=== PATIENT | female | born 1945 | race Caucasian/White ===

== ENCOUNTER 2016-12-25 09:09 | Emergency (ER) | payer MEDICARE ==
[2016-12-25 09:15] VITALS: RESP 18; TEMP 98.1
[2016-12-25 09:23] LABS: Glucose,Whole Blood 102 mg/dL (75-99)
--- NOTE | 2016-12-25 09:35 | ED ---
Altered Mental Status HPI - General Chief Complaint: Altered Mental Status Stated Complaint: confusion Time Seen by Provider: 12/25/16 09:20 Source: patient, RN notes reviewed Mode of arrival: ambulatory Limitations: no limitations - History of Present Illness Initial Comments: This is a 71-year-old female with a benign past history of an appendectomy and tonsillectomy who is here for evaluation for some confusion and memory loss. She states she came. CAT scan november brain was R-rated. She did perk in a doctor's parking lot and the west side of the hospital this morning and then said out in the waiting room for an hour and a half before seeking help finding her car. She does admit that she's been having issues with memory lately she is distressed because her daughter has follow-up petition become her guardian. Patient denies any medical problems no hurt wall including liver disease no hypertension. No thyroid problems no fevers chills sweats nausea vomiting no head injuries. No focal weakness. She does relate that her mother at the age of 93 and did have Alzheimer's disease and she is afraid she may be going on the same path. MD Complaint: confusion - Related Data Home Medications Medication Instructions Recorded Confirmed Cetirizine HCl [Zyrtec] 10 mg PO DAILY PRN 12/25/16 12/25/16 diphenhydrAMINE [Benadryl] 25 mg PO QID PRN 12/25/16 12/25/16 Allergies Allergy/AdvReac Type Severity Reaction Status Date / Time peanut [Peanut Butter] Allergy Rash/Hives Verified 12/25/16 10:39 peanut oil Allergy Rash/Hives Verified 12/25/16 10:39 Review of Systems ROS Statement: Those systems with pertinent positive or pertinent negative responses have been documented in the HPI. ROS Other: All systems not noted in ROS Statement are negative. Past Medical History Past Medical History: No Reported History History of Any Multi-Drug Resistant Organisms: None Reported Past Surgical History: Appendectomy, Cholecystectomy, Tonsillectomy Past Psychological History: No Psychological Hx Reported Smoking Status: Never smoker Past Alcohol Use History: None Reported Past Drug Use History: None Reported General Exam - General Exam Comments Initial Comments: This is a well-developed well-nourished awake alert oriented 3 female she was somewhat slow was responding to why she was here today. Limitations: no limitations General appearance: alert, in no apparent distress Head exam: Present: atraumatic, normocephalic, normal inspection Eye exam: Present: normal appearance, PERRL, EOMI. Absent: scleral icterus, conjunctival injection, periorbital swelling ENT exam: Present: normal exam, mucous membranes moist Neck exam: Present: normal inspection. Absent: tenderness, meningismus, lymphadenopathy Respiratory exam: Present: normal lung sounds bilaterally. Absent: respiratory distress, wheezes, rales, rhonchi, stridor Cardiovascular Exam: Present: regular rate, normal rhythm, normal heart sounds. Absent: systolic murmur, diastolic murmur, rubs, gallop, clicks GI/Abdominal exam: Present: soft, normal bowel sounds. Absent: distended, tenderness, guarding, rebound, rigid Extremities exam: Present: normal inspection, full ROM, normal capillary refill. Absent: tenderness, pedal edema, joint swelling, calf tenderness Back exam: Present: normal inspection Neurological exam: Present: alert, oriented X3, CN II-XII intact Psychiatric exam: Present: normal affect, anxious Skin exam: Present: warm, dry, intact, normal color. Absent: rash Course Vital Signs 12/25/16 09:10 Temperature 98.1 F Pulse Rate 95 Respiratory 18 Rate Blood Pressure 133/61 O2 Sat by Pulse 95 Oximetry Medical Decision Making - Medical Decision Making I did a long discussion with the patient and her daughter. 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 Cerebral atrophy noted on CAT scan left lower lobe atelectasis patient had no cough no fevers chills sweats or other symptoms. She is having episodes of forgetfulness. A component of dementia is considered. Patient will be discharged with her daughter I did caution her about driving in the public safety issues with this. - Lab Data Result diagrams: 12/25/16 09:52 12/25/16 09:52 Lab Results 12/25/16 12/25/16 12/25/16 Range/Units 09:20 09:52 09:52 WBC (3.8-10.6) k/uL RBC (3.80-5.40) m/uL Hgb (11.4-16.0) gm/dL Hct (34.0-46.0) % MCV (80.0-100.0) fL MCH (25.0-35.0) pg MCHC (31.0-37.0) g/dL RDW (11.5-15.5) % Plt Count (150-450) k/uL Neutrophils % % Lymphocytes % % Monocytes % % Eosinophils % % Basophils % % Neutrophils # (1.3-7.7) k/uL Lymphocytes # (1.0-4.8) k/uL Monocytes # (0-1.0) k/uL Eosinophils # (0-0.7) k/uL Basophils # (0-0.2) k/uL Sodium 142 (137-145) mmol/L Potassium 4.2 (3.5-5.1) mmol/L Chloride 108 H (98-107) mmol/L Carbon Dioxide 22 (22-30) mmol/L Anion Gap 12 mmol/L BUN 26 H (7-17) mg/dL Creatinine 0.99 (0.52-1.04) mg/dL Est GFR (MDRD) Af Amer >60 (>60 ml/min/1.73 sqM) Est GFR (MDRD) Non-Af 55 (>60 ml/min/1.73 sqM) Glucose 100 H (74-99) mg/dL POC Glucose (mg/dL) 102 H (75-99) mg/dL POC Glu Forensic Materials Engineer ID Gaby Espinal Calcium 9.9 (8.4-10.2) mg/dL Magnesium 2.2 (1.6-2.3) mg/dL Total Bilirubin 0.6 (0.2-1.3) mg/dL AST 36 (14-36) U/L ALT 38 (9-52) U/L Alkaline Phosphatase 102 (38-126) U/L Total Creatine Kinase 236 H (30-135) U/L CK-MB (CK-2) 2.8 H* (0.0-2.4) ng/mL CK-MB (CK-2) Rel Index 1.2 Troponin I <0.012 (0.000-0.034) ng/mL Total Protein 7.6 (6.3-8.2) g/dL Albumin 4.6 (3.5-5.0) g/dL TSH 1.860 (0.465-4.680) mIU/L 12/25/16 Range/Units 09:52 WBC 8.0 (3.8-10.6) k/uL RBC 4.48 (3.80-5.40) m/uL Hgb 14.2 (11.4-16.0) gm/dL Hct 42.6 (34.0-46.0) % MCV 95.1 (80.0-100.0) fL MCH 31.6 (25.0-35.0) pg MCHC 33.3 (31.0-37.0) g/dL RDW 13.5 (11.5-15.5) % Plt Count 250 (150-450) k/uL Neutrophils % 50 % Lymphocytes % 37 % Monocytes % 7 % Eosinophils % 4 % Basophils % 1 % Neutrophils # 4.0 (1.3-7.7) k/uL Lymphocytes # 2.9 (1.0-4.8) k/uL Monocytes # 0.5 (0-1.0) k/uL Eosinophils # 0.3 (0-0.7) k/uL Basophils # 0.1 (0-0.2) k/uL Sodium (137-145) mmol/L Potassium (3.5-5.1) mmol/L Chloride (98-107) mmol/L Carbon Dioxide (22-30) mmol/L Anion Gap mmol/L BUN (7-17) mg/dL Creatinine (0.52-1.04) mg/dL Est GFR (MDRD) Af Amer (>60 ml/min/1.73 sqM) Est GFR (MDRD) Non-Af (>60 ml/min/1.73 sqM) Glucose (74-99) mg/dL POC Glucose (mg/dL) (75-99) mg/dL POC Glu Forensic Materials Engineer ID Calcium (8.4-10.2) mg/dL Magnesium (1.6-2.3) mg/dL Total Bilirubin (0.2-1.3) mg/dL AST (14-36) U/L ALT (9-52) U/L Alkaline Phosphatase (38-126) U/L Total Creatine Kinase (30-135) U/L CK-MB (CK-2) (0.0-2.4) ng/mL CK-MB (CK-2) Rel Index Troponin I (0.000-0.034) ng/mL Total Protein (6.3-8.2) g/dL Albumin (3.5-5.0) g/dL TSH (0.465-4.680) mIU/L - Radiology Data Radiology results: report reviewed (Review the x-ray report showed no definite acute findings or is evidence of left lower lobe atelectasis.), image reviewed Disposition Clinical Impression: Confusion Disposition: HOME SELF-CARE Condition: Good Instructions: Dementia (ED) Referrals: Ousmane Martinez MD [Primary Care Provider] - 1-2 days
[2016-12-25 10:03] LABS: Basophils # (A) 0.1 k/uL (0-0.2); Basophils % (A) 1 %; CH 31.5; CHCM 33.3; Eosinophils # (A) 0.3 k/uL (0-0.7); Eosinophils % (A) 4 %; HCT 42.6 % (34.0-46.0); HDW 2.35; HGB 14.2 gm/dL (11.4-16.0); Luc % (Auto) 3; Lymphocytes # (A) 2.9 k/uL (1.0-4.8); Lymphocytes % (A) 37 %; MCH 31.6 pg (25.0-35.0); MCHC 33.3 g/dL (31.0-37.0); MCV 95.1 fL (80.0-100.0); Mean Platelet Volume 8.3; Monocytes # (A) 0.5 k/uL (0-1.0); Monocytes % (A) 7 %; Neutrophils % (A) 50 %; RBC 4.48 m/uL (3.80-5.40); RDW 13.5 % (11.5-15.5); WBC (Perox) 7.73
[2016-12-25 10:14] LABS: ALT 38 U/L (9-52); AST 36 U/L (14-36); Alkaline Phosphatase 102 U/L (38-126); Anion Gap 12 mmol/L; Blood Urea Nitrogen 26 mg/dL (7-17); Calcium 9.9 mg/dL (8.4-10.2); Carbon Dioxide 22 mmol/L (22-30); Chloride 108 mmol/L (98-107); Glucose 100 mg/dL (74-99); Magnesium 2.2 mg/dL (1.6-2.3); Non-African American GFR(MDRD) 55 (>60 ml/min/1.73 sqM); Potassium 4.2 mmol/L (3.5-5.1); Sodium 142 mmol/L (137-145); Total Bilirubin 0.6 mg/dL (0.2-1.3); Total Protein 7.6 g/dL (6.3-8.2)
[2016-12-25 10:29] LABS: Creatine Kinase 236 U/L (30-135)
--- NOTE | 2016-12-25 10:32 | XR ---
EXAMINATION TYPE: XR chest 2V DATE OF EXAM: 12/25/2016 COMPARISON: NONE TECHNIQUE: PA and lateral views submitted. HISTORY: Cough FINDINGS: The lungs are clear and there is no pneumothorax, pleural effusion, or focal pneumonia. Biapical pl eural thickening. Basilar atelectasis or early infiltrate. Chronic right rib deformities suggest remote trauma. Hypertrophic changes of the spine. Surgical clip s in the abdomen. IMPRESSION: 1. Left basilar atelectasis or infiltrate. 2. Correlate for COPD
--- NOTE | 2016-12-25 10:37 | CT ---
EXAMINATION TYPE: CT brain wo con DATE OF EXAM: 12/25/2016 HISTORY: Confusion CT DLP: 1017.9 mGycm. Automated Exposure Control for Dose Reduction was Utilized. TECHNIQUE: CT scan of the head is performed without contrast. COMPARISON: None. FINDINGS: There is no acute intracranial hemorrhage or midline shift identified. There is diffuse v entricular and sulcal prominence consistent with diffuse age-related cerebral atrophy. There is low- attenuation in the periventricular white matter consistent with chronic small vessel ischemic change. The globes are intact and the visualized sinuses are clear. IMPRESSION: No acute intracranial hemorrhage or midline shift. There is mild to moderate diffuse ag e-related cerebral atrophy and chronic small vessel ischemic change noted.
[2016-12-25 10:42] LABS: Troponin I <0.012 ng/mL (0.000-0.034)
[2016-12-25 10:51] LABS: Creatine Kinase MB 2.8 ng/mL (0.0-2.4)
[2016-12-25 12:20] VITALS: BP 144/78; PULSE 88
== END 2016-12-25 12:39 | disposition home or self-care (01) ==
LOC: EC 09:09
DX: R41.0 Disorientation, unspecified (principal); R41.3 Other amnesia; G31.9 Degenerative disease of nervous system, unspecified; J98.11 Atelectasis; Z91.010 Allergy to peanuts; Z81.8 Family history of other mental and behavioral disorders
CPT/HCPCS: 36415; 70450; 71020; 80053; 82550; 82553; 83735; 84443; 84484; 85025; 93005; 99285

== ENCOUNTER → 2017-09-11 | Outpatient (CLI) | payer MEDICARE ==
--- NOTE | 2017-09-14 10:47 | MM ---
Reason for exam: screening (asymptomatic). History: Patient is postmenopausal. Physical Findings: A clinical breast exam by your physician is recommended on an annual basis and results should be correlated with mammographic findings. MG 3D Screening Mammo W/Cad Bilateral CC and MLO view(s) were taken. No prior studies available for comparison. There is no discrete abnormality. ASSESSMENT: Negative, BI-RAD 1 RECOMMENDATION: Routine screening mammogram of both breasts in 1 year.
== END | disposition home or self-care (01) ==
LOC: RADMAMWWP 06:58
PROVIDERS: ATTEND Internal Medicine
DX: Z12.31 Encounter for screening mammogram for malignant neoplasm of breast (principal)
CPT/HCPCS: 77063; 77067

== ENCOUNTER → 2018-11-17 | Outpatient (CLI) | payer MEDICARE ==
--- NOTE | 2018-11-17 22:28 | MR ---
EXAMINATION TYPE: MR brain wo con DATE OF EXAM: 11/17/2018 COMPARISON: CT brain December 25, 2016. HISTORY: Mild cognitive impairment. TECHNIQUE: Multiplanar, multisequence imaging of the brain and brainstem is performed without IV cont rast. FINDINGS: Diffusion weighted images demonstrate no evidence of a recent infarct or other diffusion abnormality. There is no worrisome extra-axial fluid collection. There is diffuse ventricular and sulcal prominenc e redemonstrated. There are some scattered foci of T2 hyperintensity throughout the white matter bila terally. Lesions are nonspecific in appearance and distribution. Midline structures demonstrate normal morphology. The craniocervical junction appears within normal limits. Normal vascular flow voids are present. The visualized sinuses are clear and the globes are i ntact. Some patchy increased fluid signal bilateral mastoid air cells, left greater than right is red emonstrated. IMPRESSION: Moderate to borderline advanced diffuse cerebral atrophy with mild chronic small vessel i schemic change identified. Possible mild left greater than right mastoiditis, correlate clinically.
== END ==
LOC: RADMRIMAIN 18:32
PROVIDERS: ATTEND Psychiatry & Neurology Neurology
DX: G31.84 Mild cognitive impairment of uncertain or unknown etiology (principal)
CPT/HCPCS: 70551

== ENCOUNTER 2019-06-02 17:02 | Emergency (ER) | payer MEDICARE ==
[2019-06-02] MEDS ORDERED: methylPREDNISolone SOD SUCCI 125 MG/2 ML VIAL IV STA (17:10)
[2019-06-02] MEDS ORDERED: FAMOTIDINE 20 MG/2 ML VIAL IV STA (17:10)
--- NOTE | 2019-06-02 18:12 | ED ---
Allergic Reaction HPI - General Chief complaint: Allergic Reaction Stated complaint: allergic reaction Time Seen by Provider: 06/02/19 17:02 Source: patient, EMS, RN notes reviewed Mode of arrival: EMS Limitations: no limitations - History of Present Illness Initial Comments: This is a 74-year-old female with a history of peanut ALLERGY was exposed to p andrea when she some brownies that were exposed to peanut matter. He started developing a rash was itchy some slight throat discomfort no difficulty breathing otherwise. She is brought in by EMS. She did take for Benadryl prior to transport. She is started feel somewhat better already. MD Complaint: allergic reaction - Related Data Home Medications Medication Instructions Recorded Confirmed Cetirizine HCl [Zyrtec] 10 mg PO DAILY PRN 12/25/16 12/25/16 diphenhydrAMINE [Benadryl] 25 mg PO QID PRN 12/25/16 12/25/16 Previous Rx's Medication Instructions Recorded EPINEPHrine (Auto Inject) [Epipen] 0.3 mg IM ONCE PRN #2 pen 06/02/19 Famotidine [Pepcid] 20 mg PO BID #10 tablet 06/02/19 methylPREDNISolone Dose Pack 4 mg PO DIRECTED #21 package 06/02/19 [Medrol Dose Pack] Allergies Allergy/AdvReac Type Severity Reaction Status Date / Time peanut [Peanut Butter] Allergy Rash/Hives Verified 06/02/19 17:08 peanut oil Allergy Rash/Hives Verified 06/02/19 17:08 Review of Systems ROS Statement: Those systems with pertinent positive or pertinent negative responses have been documented in the HPI. ROS Other: All systems not noted in ROS Statement are negative. Past Medical History Past Medical History: No Reported History History of Any Multi-Drug Resistant Organisms: None Reported Past Surgical History: Appendectomy, Cholecystectomy, Tonsillectomy Past Psychological History: No Psychological Hx Reported Smoking Status: Never smoker Past Alcohol Use History: None Reported Past Drug Use History: None Reported General Exam - General Exam Comments Initial Comments: This is a well-developed well-nourished awake alert oriented 3 female Limitations: no limitations General appearance: alert, anxious Head exam: Present: atraumatic, normocephalic, normal inspection Eye exam: Present: normal appearance, PERRL, EOMI. Absent: scleral icterus, conjunctival injection, periorbital swelling ENT exam: Present: normal exam, mucous membranes moist Neck exam: Present: normal inspection, full ROM, other (No stridor JVD or bruits). Absent: tenderness, meningismus, lymphadenopathy Respiratory exam: Present: normal lung sounds bilaterally. Absent: respiratory distress, wheezes, rales, rhonchi, stridor Cardiovascular Exam: Present: regular rate, normal rhythm, normal heart sounds. Absent: systolic murmur, diastolic murmur, rubs, gallop, clicks GI/Abdominal exam: Present: soft, normal bowel sounds. Absent: distended, tenderness, guarding, rebound, rigid Extremities exam: Present: normal inspection, full ROM, normal capillary refill. Absent: tenderness, pedal edema, joint swelling, calf tenderness Back exam: Present: normal inspection Neurological exam: Present: alert, oriented X3, CN II-XII intact Psychiatric exam: Present: normal affect, normal mood Skin exam: Present: warm, dry, intact, erythema, other (MCV of the face and extremities.). Absent: rash Course Vital Signs 06/02/19 17:03 Temperature 97.9 F Pulse Rate 84 Respiratory 16 Rate Blood Pressure 187/87 O2 Sat by Pulse 96 Oximetry Medical Decision Making - Medical Decision Making Reevaluation patient reveals she still improves her coloration has improved. No further symptoms at this time she'll be discharged on appropriate medication. She's not sure exactly where her EpiPen is at home she'll be given a new prescription Disposition Clinical Impression: Peanut allergy, Allergic reaction Disposition: HOME SELF-CARE Condition: Good Instructions (If sedation given, give patient instructions): Peanut Allergy (ED) Additional Instructions: Prescription sent to your preferred pharmacy Prescriptions: EPINEPHrine (Auto Inject) [Epipen] 0.3 mg IM ONCE PRN #2 pen PRN Reason: Anaphylaxis methylPREDNISolone Dose Pack [Medrol Dose Pack] 4 mg PO DIRECTED #21 package Famotidine [Pepcid] 20 mg PO BID #10 tablet Is patient prescribed a controlled substance at d/c from ED?: No Referrals: Ousmane Martinez MD [Primary Care Provider] - 1-2 days
[2019-06-02 18:22] VITALS: BP 158/71; PULSE 79; RESP 17; TEMP 98
== END 2019-06-02 18:21 | disposition home or self-care (01) ==
LOC: EC 17:02
DX: T78.1XXA Other adverse food reactions, not elsewhere classified, initial encounter (principal); Z91.010 Allergy to peanuts
CPT/HCPCS: 99283; 96374; 96375; J2930

== ENCOUNTER 2019-10-24 14:14 | Emergency (ER) | payer MEDICARE ==
[2019-10-24 14:20] VITALS: RESP 18; TEMP 98
[2019-10-24] MEDS ORDERED: FAMOTIDINE 20 MG/2 ML VIAL IV STA (14:23)
--- NOTE | 2019-10-24 14:25 | ED ---
General Adult HPI - General Chief complaint: Allergic Reaction Stated complaint: Allergic Reaction Time Seen by Provider: 10/24/19 14:19 Source: patient, EMS Mode of arrival: EMS Limitations: no limitations - History of Present Illness Initial comments: Dictation was produced using [employer] dictation software. please excuse any grammatical, word or spelling errors. This patient was cared for during a federal and state declared state of emergency secondary to Covid 19 Chief Complaint: 74-year-old female presents with possible ALLERGIC reaction to chocolate or peanut butter History of Present Illness: 74-year-old female she has no known comorbidities. She was brought in by EMS for reaction to chocolate or peanut butter. Current EMS she was brought here today because she was having a reaction to chocolate and or peanut butter. EMS was called for possible reaction. Patient has an ALLERGY to chocolate and peanut butter. She states she consumed these items because she forgot and wasn't thinking. EMS reports that patient appeared to be red in the face. She was given epinephrine and Benadryl. Yes reports that her symptoms improved. Patient states that she feels okay at this time. She denies any shortness of breath or abdominal pain. Patient also denies any rash. The ROS documented in this emergency department record has been reviewed and confirmed by me. Those systems with pertinent positive or negative responses have been documented in the HPI. All other systems are other negative and/or noncontributory. PHYSICAL EXAM: General Impression: Alert and oriented x2/4, not in acute distress HEENT: Normocephalic atraumatic, extra-ocular movements intact, pupils equal and reactive to light bilaterally, mucous membranes moist. Cardiovascular: Heart regular rate and rhythm Chest: Able to complete full sentences, no retractions, no tachypnea, no wheezing with auscultation of the lungs Abdomen: Bowel sounds present, abdomen soft, non-tender, non-distended, no organomegaly Musculoskeletal: Pulses present and equal in all extremities, no peripheral edema Motor: no focal deficits noted Neurological: CN II-XII grossly intact, no focal motor or sensory deficits noted Skin: Intact with no visualized rashes ED course: 74-year-old female presents today with possible ALLERGIC exposure to chocolate and/or peanut butter. Patient is a poor historian. She does appear confused. Simply with patient's normal baseline mentation is. She currently lives at assisted living facility. Patient appears to be confused. She is not able to tell me what month or year it is accurately. She does however identify the current president and the most recent holiday. Daughter at bedside reports that patient has history of Alzheimer's and that she is at her baseline. Altered mental status workup was not pursued considering that daughter reports the patient is at baseline. Labs are grossly unremarkable. She does have a mild lactic acidosis 2.5. likely secondary to mild starvation ketoacidosis and dehydration. Patient is well-appearing at bedside. Daughter requested that patient be discharged considering that there is a current pandemic at the moment. Urinalysis shows 4+ glucose. Serum alcohol is negative. Chest x-ray is nonacute. Patient is well-appearing at bedside. She is given Decadron and Pepcid. Patient given prescription for EpiPen. Return parameters discussed with daughter. Patient will be discharged. EKG interpretation: Ventricular rate 80, normal sinus rhythm,. 126, QRS 82, QTc 440. No NC prolongation, no QTC prolongation, no ST or T-wave changes noted. . Overall, this EKG is unremarkable - Related Data Home Medications Medication Instructions Recorded Confirmed Cetirizine HCl [Zyrtec] 10 mg PO DAILY PRN 12/25/16 12/25/16 diphenhydrAMINE [Benadryl] 25 mg PO QID PRN 12/25/16 12/25/16 Previous Rx's Medication Instructions Recorded EPINEPHrine (Auto Inject) [Epipen] 0.3 mg IM ONCE PRN #2 pen 06/02/19 Famotidine [Pepcid] 20 mg PO BID #10 tablet 06/02/19 methylPREDNISolone Dose Pack 4 mg PO DIRECTED #21 package 06/02/19 [Medrol Dose Pack] EPINEPHrine (Auto Inject) [Epipen] 0.3 mg IM ONCE PRN #2 pen 10/24/19 Allergies Allergy/AdvReac Type Severity Reaction Status Date / Time peanut [Peanut Butter] Allergy Rash/Hives Verified 06/02/19 17:08 peanut oil Allergy Rash/Hives Verified 06/02/19 17:08 Review of Systems ROS Statement: Those systems with pertinent positive or pertinent negative responses have been documented in the HPI. ROS Other: All systems not noted in ROS Statement are negative. Past Medical History Past Medical History: No Reported History History of Any Multi-Drug Resistant Organisms: None Reported Past Surgical History: Appendectomy, Cholecystectomy, Tonsillectomy Past Psychological History: No Psychological Hx Reported Smoking Status: Never smoker Past Alcohol Use History: None Reported Past Drug Use History: None Reported General Exam Limitations: no limitations Course Vital Signs 10/24/19 14:15 Temperature 98 F Pulse Rate 98 Respiratory 18 Rate Blood Pressure 165/95 O2 Sat by Pulse 98 Oximetry Medical Decision Making - Lab Data Result diagrams: 10/24/19 14:28 10/24/19 14:28 Lab Results 10/24/19 10/24/19 10/24/19 Range/Units 14:28 14:28 14:28 WBC 13.2 H (3.8-10.6) k/uL RBC 5.00 (3.80-5.40) m/uL Hgb 15.3 (11.4-16.0) gm/dL Hct 46.5 H (34.0-46.0) % MCV 93.1 (80.0-100.0) fL MCH 30.5 (25.0-35.0) pg MCHC 32.8 (31.0-37.0) g/dL RDW 12.9 (11.5-15.5) % Plt Count 273 (150-450) k/uL PT 9.8 (9.0-12.0) sec INR 0.9 (<1.2) APTT 22.3 (22.0-30.0) sec Sodium 136 L (137-145) mmol/L Potassium 4.5 (3.5-5.1) mmol/L Chloride 102 (98-107) mmol/L Carbon Dioxide 24 (22-30) mmol/L Anion Gap 10 mmol/L BUN 19 H (7-17) mg/dL Creatinine 1.03 (0.52-1.04) mg/dL Est GFR (CKD-EPI)AfAm 62 (>60 ml/min/1.73 sqM) Est GFR (CKD-EPI)NonAf 54 (>60 ml/min/1.73 sqM) Glucose 317 H (74-99) mg/dL Plasma Lactic Acid Missael (0.7-2.0) mmol/L Calcium 9.8 (8.4-10.2) mg/dL Magnesium 2.0 (1.6-2.3) mg/dL Total Bilirubin 0.3 (0.2-1.3) mg/dL AST 69 H (14-36) U/L ALT 70 H (4-34) U/L Alkaline Phosphatase 129 H (38-126) U/L Total Protein 7.0 (6.3-8.2) g/dL Albumin 4.2 (3.5-5.0) g/dL Urine Color Urine Appearance (Clear) Urine pH (5.0-8.0) Ur Specific Beecher (1.001-1.035) Urine Protein (Negative) Urine Glucose (UA) (Negative) Urine Ketones (Negative) Urine Blood (Negative) Urine Nitrite (Negative) Urine Bilirubin (Negative) Urine Urobilinogen (<2.0) mg/dL Ur Leukocyte Esterase (Negative) Serum Alcohol <10 mg/dL 10/24/19 10/24/19 Range/Units 14:28 14:50 WBC (3.8-10.6) k/uL RBC (3.80-5.40) m/uL Hgb (11.4-16.0) gm/dL Hct (34.0-46.0) % MCV (80.0-100.0) fL MCH (25.0-35.0) pg MCHC (31.0-37.0) g/dL RDW (11.5-15.5) % Plt Count (150-450) k/uL PT (9.0-12.0) sec INR (<1.2) APTT (22.0-30.0) sec Sodium (137-145) mmol/L Potassium (3.5-5.1) mmol/L Chloride (98-107) mmol/L Carbon Dioxide (22-30) mmol/L Anion Gap mmol/L BUN (7-17) mg/dL Creatinine (0.52-1.04) mg/dL Est GFR (CKD-EPI)AfAm (>60 ml/min/1.73 sqM) Est GFR (CKD-EPI)NonAf (>60 ml/min/1.73 sqM) Glucose (74-99) mg/dL Plasma Lactic Acid Missael 2.5 H* (0.7-2.0) mmol/L Calcium (8.4-10.2) mg/dL Magnesium (1.6-2.3) mg/dL Total Bilirubin (0.2-1.3) mg/dL AST (14-36) U/L ALT (4-34) U/L Alkaline Phosphatase (38-126) U/L Total Protein (6.3-8.2) g/dL Albumin (3.5-5.0) g/dL Urine Color Light Yellow Urine Appearance Clear (Clear) Urine pH 5.5 (5.0-8.0) Ur Specific Beecher 1.018 (1.001-1.035) Urine Protein Negative (Negative) Urine Glucose (UA) 4+ H (Negative) Urine Ketones Negative (Negative) Urine Blood Negative (Negative) Urine Nitrite Negative (Negative) Urine Bilirubin Negative (Negative) Urine Urobilinogen <2.0 (<2.0) mg/dL Ur Leukocyte Esterase Negative (Negative) Serum Alcohol mg/dL Disposition Clinical Impression: Allergic reaction Disposition: HOME SELF-CARE Condition: Fair Instructions (If sedation given, give patient instructions): Anaphylaxis (ED) Additional Instructions: Please follow with primary care physician upon discharge. Given prescriptions for EpiPen autoinjector's. He is administered this to patient if you have another ALLERGIC Prescriptions: EPINEPHrine (Auto Inject) [Epipen] 0.3 mg IM ONCE PRN #2 pen PRN Reason: Anaphylaxis Is patient prescribed a controlled substance at d/c from ED?: No Referrals: Ousmane Martinez MD [STAFF PHYSICIAN] - 1-2 days Time of Disposition: 15:02
[2019-10-24 14:39] LABS: Basophils # (A) 0.1 k/uL (0-0.2); Basophils % (A) 1 %; Eosinophils # (A) 0.6 k/uL (0-0.7); Eosinophils % (A) 5 %; HCT 46.5 % (34.0-46.0); HGB 15.3 gm/dL (11.4-16.0); Lymphocytes # (A) 8.5 k/uL (1.0-4.8); Lymphocytes % (A) 65 %; MCH 30.5 pg (25.0-35.0); MCHC 32.8 g/dL (31.0-37.0); MCV 93.1 fL (80.0-100.0); Mean Platelet Volume 10.4; Monocytes # (A) 0.6 k/uL (0-1.0); Monocytes % (A) 5 %; Neutrophils % (A) 23 %; Platelet Count 273 k/uL (150-450); RDW 12.9 % (11.5-15.5); WBC 13.2 k/uL (3.8-10.6)
--- NOTE | 2019-10-24 14:46 | XR ---
EXAMINATION TYPE: XR chest 1V portable DATE OF EXAM: 10/24/2019 COMPARISON: 12/25/2016 INDICATION: Acute mental status changes TECHNIQUE: Single frontal view of the chest is obtained. FINDINGS: The heart size is normal. The pulmonary vasculature is normal. Mild perihilar increased lung markings appear to be present which are nonspecific. No suspicious fabian pheral consolidations are evident. IMPRESSION: 1. Mild increased perihilar lung markings. Mild infiltrate may be developing.
[2019-10-24 14:48] LABS: INR 0.9 (<1.2); Partial Thromboplastin Time 22.3 sec (22.0-30.0); Prothrombin Time 9.8 sec (9.0-12.0)
[2019-10-24 14:49] LABS: ALT 70 U/L (4-34); AST 69 U/L (14-36); African American GFR (CKD) 62 (>60 ml/min/1.73 sqM); Albumin 4.2 g/dL (3.5-5.0); Alcohol <10 mg/dL; Alkaline Phosphatase 129 U/L (38-126); Anion Gap 10 mmol/L; Blood Urea Nitrogen 19 mg/dL (7-17); Calcium 9.8 mg/dL (8.4-10.2); Carbon Dioxide 24 mmol/L (22-30); Chloride 102 mmol/L (98-107); Glucose 317 mg/dL (74-99); Non-African American GFR(CKD) 54 (>60 ml/min/1.73 sqM); Potassium 4.5 mmol/L (3.5-5.1); Sodium 136 mmol/L (137-145); Total Bilirubin 0.3 mg/dL (0.2-1.3)
[2019-10-24 14:56] LABS: Appearance,Urine Clear (Clear); Bilirubin,Urine Negative (Negative); Blood,Urine Negative (Negative); Color,Urine Light Yellow; Glucose,Urine (UA) 4+ (Negative); Ketones,Urine Negative (Negative); Leukocyte Esterase,Urine Negative (Negative); Nitrite,Urine Negative (Negative); PH, Urine 5.5 (5.0-8.0); Protein,Urine Negative (Negative); Specific Gravity,Urine 1.018 (1.001-1.035); Urobilinogen,Urine <2.0 mg/dL (<2.0)
[2019-10-24] MEDS ORDERED: DEXAMETHASONE 4 MG TAB PO STA (14:59)
[2019-10-24 15:04] LABS: Large Platelets Present
[2019-10-24 15:05] LABS: Poikilocytosis (M) Present
[2019-10-24 15:13] VITALS: BP 149/76; PULSE 104
[2019-10-24 19:42] LABS: Urine Alcohol Negative (Negative); Urine Barbiturate Negative (Negative); Urine Cocaine Negative (Negative); Urine Methadone Negative (Negative); Urine Opiates Negative (Negative); Urine Phencyclidine Negative (Negative)
== END 2019-10-24 15:18 | disposition home or self-care (01) ==
LOC: EEVIPCON 14:14 → EC 14:14
DX: T78.1XXA Other adverse food reactions, not elsewhere classified, initial encounter (principal); F02.80 Dementia in other diseases classified elsewhere, unspecified severity, without behavioral disturbance, psychotic disturbance, mood disturbance, and anxiety; G30.9 Alzheimer's disease, unspecified; E87.2 Acidosis; E86.0 Dehydration; Z91.010 Allergy to peanuts
CPT/HCPCS: 99284 ×2; 96374 ×2; 36415; 93005; 80053; 83605; 83735; 85025; 85610; 85730; 81003; 80306; 71045; G0480; J8540; 80320

== ENCOUNTER → 2020-10-04 | Outpatient (CLI) | payer MEDICARE ==
--- NOTE | 2020-10-05 11:20 | MM ---
Reason for exam: screening (asymptomatic). Last mammogram was performed 3 years and 1 month ago. History: Patient is postmenopausal. Physical Findings: A clinical breast exam by your physician is recommended on an annual basis and results should be correlated with mammographic findings. MG 3D Screening Mammo W/Cad Bilateral CC and MLO view(s) were taken. Prior study comparison: September 11, 2017, bilateral MG 3d screening mammo w/cad. There are scattered fibroglandular densities. There is no discrete abnormality. No significant changes when compared with prior studies. ASSESSMENT: Negative, BI-RAD 1 RECOMMENDATION: Routine screening mammogram of both breasts in 1 year.
== END | disposition home or self-care (01) ==
LOC: RADMAMWWP 09:43
PROVIDERS: ATTEND Family Medicine
DX: Z12.31 Encounter for screening mammogram for malignant neoplasm of breast (principal); Z78.0 Asymptomatic menopausal state
CPT/HCPCS: 77063; 77067

== ENCOUNTER → 2020-12-26 | Outpatient (CLI) | payer MEDICARE ==
--- NOTE | 2020-12-26 12:20 | US ---
EXAMINATION TYPE: US kidneys/renal and bladder DATE OF EXAM: 12/26/2020 COMPARISON: NONE CLINICAL HISTORY: N17.9 Acute renal failure. Acute renal failure EXAM MEASUREMENTS: Right Kidney: 9.2 x 3.9 x 3.7 cm Left Kidney: 9.9 x 3.8 x 4.0 cm Right Kidney: Cyst mid= 1.1 x 0.8 x 1.1 cm Left Kidney: No evidence of hydro, difficult to visualize due to overlying bowel gas Bladder: Slightly distended, pt sent STAT, not prepped Bilateral Jets seen: No Results called to [place] at 's office at time of exam There is no evidence for hydronephrosis at this point in time. No nephrolithiasis is seen. IMPRESSION: Right renal cyst. Under distended urinary bladder and ureteral jets not seen.
== END | disposition home or self-care (01) ==
LOC: RADUSWWP 11:54
PROVIDERS: ATTEND Family Medicine
DX: N17.9 Acute kidney failure, unspecified (principal); N28.1 Cyst of kidney, acquired
CPT/HCPCS: 76770

== ENCOUNTER 2020-12-27 09:40 | Inpatient (IN) | payer MEDICARE ==
[2020-12-27 11:18] LABS: Basophils # (A) 0.1 k/uL (0-0.2); Basophils % (A) 1 %; Eosinophils # (A) 0.7 k/uL (0-0.7); Eosinophils % (A) 7 %; HCT 45.6 % (34.0-46.0); HGB 15.8 gm/dL (11.4-16.0); Lymphocytes # (A) 4.5 k/uL (1.0-4.8); Lymphocytes % (A) 40 %; MCH 31.8 pg (25.0-35.0); MCHC 34.7 g/dL (31.0-37.0); MCV 91.5 fL (80.0-100.0); Mean Platelet Volume 10.6; Monocytes # (A) 0.9 k/uL (0-1.0); Monocytes % (A) 8 %; Neutrophils # (A) 4.6 k/uL (1.3-7.7); Neutrophils % (A) 42 %; Platelet Count 285 k/uL (150-450); RBC 4.98 m/uL (3.80-5.40); RDW 12.7 % (11.5-15.5)
--- NOTE | 2020-12-27 11:22 | ED ---
Recheck HPI - General Chief Complaint: Recheck/Abnormal Lab/Rx Stated Complaint: Abnormal Labs Time Seen by Provider: 12/27/20 09:53 Source: patient, RN notes reviewed Mode of arrival: ambulatory Limitations: no limitations - History of Present Illness Initial Comments: This is a 75-year-old female history of chronic renal failure with a GFR of 20 who was sent over from the doctor's office today because of elevated potassium. It was 5.7 on it test and the pretest was 6.5 patient herself denies any complaints of fevers chills nausea vomiting sweats urinary habits no change in medications or food intake MD Complaint: abnormal lab - Related Data Home Medications Medication Instructions Recorded Confirmed Dimethic/Zinc Ox/Vits A,D/Aloe [A 1 applic TOPICAL TID 12/27/20 12/27/20 and D Diaper Rash Cream] Diphenoxylate HCl/Atropine 1 tab PO TID PRN 12/27/20 12/27/20 [Lomotil 2.5-0.025 mg Tablet] Donepezil HCl [Aricept] 10 mg PO DAILY 12/27/20 12/27/20 Hydrocortisone Acetate [Anusol-Hc] 1 applic TOPICAL QID PRN 12/27/20 12/27/20 Insulin Glargine,Hum.rec.anlog 10 unit SQ QAM 12/27/20 12/27/20 [Lantus Solostar] L.acidoph,Paracasei, B.lactis 1 cap PO DAILY 12/27/20 12/27/20 [Probiotic] Oxybutynin ER [Ditropan Xl] 10 mg PO DAILY 12/27/20 12/27/20 Rosuvastatin Calcium [Crestor] 40 mg PO DAILY 12/27/20 12/27/20 Previous Rx's Medication Instructions Recorded EPINEPHrine (Auto Inject) [Epipen] 0.3 mg IM ONCE PRN #2 pen 10/24/19 Allergies Allergy/AdvReac Type Severity Reaction Status Date / Time ciprofloxacin Allergy Unknown Verified 12/27/20 11:18 levofloxacin [From Levaquin] Allergy Unknown Verified 12/27/20 11:18 peanut [Peanut Butter] Allergy Rash/Hives Verified 12/27/20 11:18 peanut oil Allergy Rash/Hives Verified 12/27/20 11:18 Quinazolinones Allergy Unknown Verified 12/27/20 11:18 tramadol Allergy Unknown Verified 12/27/20 11:18 Review of Systems ROS Statement: Those systems with pertinent positive or pertinent negative responses have been documented in the HPI. ROS Other: All systems not noted in ROS Statement are negative. Past Medical History Past Medical History: Dementia, Diabetes Mellitus Additional Past Medical History / Comment(s): kidney failure History of Any Multi-Drug Resistant Organisms: None Reported Past Surgical History: Appendectomy, Cholecystectomy, Tonsillectomy Past Psychological History: No Psychological Hx Reported Smoking Status: Never smoker Past Alcohol Use History: None Reported Past Drug Use History: None Reported General Exam - General Exam Comments Initial Comments: This is a well-developed sec appearing female who is awake alert oriented 3 Limitations: no limitations General appearance: alert, in no apparent distress Head exam: Present: atraumatic, normocephalic, normal inspection Eye exam: Present: normal appearance, PERRL, EOMI. Absent: scleral icterus, conjunctival injection, periorbital swelling ENT exam: Present: mucous membranes dry Neck exam: Present: normal inspection. Absent: tenderness, meningismus, lymphadenopathy Respiratory exam: Present: normal lung sounds bilaterally. Absent: respiratory distress, wheezes, rales, rhonchi, stridor Cardiovascular Exam: Present: regular rate, normal rhythm, normal heart sounds. Absent: systolic murmur, diastolic murmur, rubs, gallop, clicks GI/Abdominal exam: Present: soft, normal bowel sounds. Absent: distended, tenderness, guarding, rebound, rigid Extremities exam: Present: normal inspection, full ROM, normal capillary refill. Absent: tenderness, pedal edema, joint swelling, calf tenderness Back exam: Present: normal inspection Neurological exam: Present: alert, oriented X3, CN II-XII intact Psychiatric exam: Present: normal affect, normal mood Skin exam: Present: warm, dry, intact, normal color. Absent: rash Course Vital Signs 12/27/20 12/27/20 09:51 11:51 Temperature 97.8 F 97.8 F Pulse Rate 68 64 Respiratory 18 14 Rate Blood Pressure 96/63 96/59 O2 Sat by Pulse 97 96 Oximetry Medical Decision Making - Medical Decision Making I did discuss the findings with the patient and with family. Patient be admi tted potassium is 5.0 evidence of acute kidney injury. Patient be admitted with nephrology consultation - Lab Data Result diagrams: 12/27/20 10:40 12/27/20 11:00 Lab Results 12/27/20 12/27/20 12/27/20 Range/Units 10:40 11:00 12:37 WBC 11.0 H (3.8-10.6) k/uL RBC 4.98 (3.80-5.40) m/uL Hgb 15.8 (11.4-16.0) gm/dL Hct 45.6 (34.0-46.0) % MCV 91.5 (80.0-100.0) fL MCH 31.8 (25.0-35.0) pg MCHC 34.7 (31.0-37.0) g/dL RDW 12.7 (11.5-15.5) % Plt Count 285 (150-450) k/uL MPV 10.6 Neutrophils % 42 % Lymphocytes % 40 % Monocytes % 8 % Eosinophils % 7 % Basophils % 1 % Neutrophils # 4.6 (1.3-7.7) k/uL Lymphocytes # 4.5 (1.0-4.8) k/uL Monocytes # 0.9 (0-1.0) k/uL Eosinophils # 0.7 (0-0.7) k/uL Basophils # 0.1 (0-0.2) k/uL Sodium 137 (137-145) mmol/L Potassium 5.0 (3.5-5.1) mmol/L Chloride 103 (98-107) mmol/L Carbon Dioxide 26 (22-30) mmol/L Anion Gap 8 mmol/L BUN 34 H (7-17) mg/dL Creatinine 2.68 H (0.52-1.04) mg/dL Est GFR (CKD-EPI)AfAm 20 (>60 ml/min/1.73 sqM) Est GFR (CKD-EPI)NonAf 17 (>60 ml/min/1.73 sqM) Glucose 107 H (74-99) mg/dL Calcium 10.8 H (8.4-10.2) mg/dL Magnesium 2.1 (1.6-2.3) mg/dL Total Bilirubin 0.4 (0.2-1.3) mg/dL AST 34 (14-36) U/L ALT 35 H (4-34) U/L Alkaline Phosphatase 65 (38-126) U/L Creatine Kinase 30 (30-135) U/L Total Protein 7.0 (6.3-8.2) g/dL Albumin 4.3 (3.5-5.0) g/dL Coronavirus (PCR) Not Detected (Not Detectd) - EKG Data -: EKG Interpreted by Me EKG shows normal: sinus rhythm EKG Comments: Sinus rhythm a 64 NC interval 124 QRS 86 QT/QTC 390/402 this is a normal- appearing EKG - Radiology Data Radiology results: report reviewed (Imaging reviewed no acute findings.), image reviewed Disposition Clinical Impression: Acute kidney injury, Dehydration Disposition: ADMITTED IP TO THIS [facility] Condition: Fair Referrals: Stevan Zuniga MD [Primary Care Provider] - 1-2 days
[2020-12-27 11:36] LABS: Albumin 4.3 g/dL (3.5-5.0); Calcium 10.8 mg/dL (8.4-10.2); Magnesium 2.1 mg/dL (1.6-2.3); Total Bilirubin 0.4 mg/dL (0.2-1.3)
[2020-12-27 13:56] LABS: Appearance,Urine Cloudy (Clear); Bacteria,Urine Rare /hpf; Bilirubin,Urine Negative (Negative); Blood,Urine Negative (Negative); Color,Urine Yellow; Glucose,Urine (UA) 4+ (Negative); Hyaline Casts,Urine 1 /lpf (0-2); Ketones,Urine Negative (Negative); Leukocyte Esterase,Urine Large (Negative); Mucus,Urine Rare /hpf; Nitrite,Urine Negative (Negative); Protein,Urine Trace (Negative); RBC,Urine 8 /hpf (0-5); Specific Gravity,Urine 1.015 (1.001-1.035); Squamous Epithelial Cell,Urine 5 /hpf (0-4); Urobilinogen,Urine <2.0 mg/dL (<2.0); WBC,Urine 99 /hpf (0-5)
[2020-12-27] MEDS ORDERED: SODIUM CHLORIDE 0.9% 1,000 ML IV STA ×2 (13:57)
[2020-12-27] MEDS ORDERED: NALOXONE 0.4 MG/ML 1 ML VIAL IV PRN (13:58)
[2020-12-27] MEDS ORDERED: DIPHENOX-ATROP 2.5-0.025 MG 1 EACH TAB PO PRN (14:00)
[2020-12-27] MEDS ORDERED: SODIUM CHLORIDE 0.9% 1,000 ML IV SCH (14:00)
[2020-12-27] MEDS ORDERED: ZINC OXIDE 20% OINT 28.4 GM TUBE TOPICAL PRN (16:00)
[2020-12-27 17:34] LABS: Glucose,Whole Blood 94 mg/dL (75-99)
[2020-12-27 20:18] LABS: Glucose,Whole Blood 110 mg/dL (75-99)
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
[2020-12-28 06:00] LABS: Basophils % (A) 0 %; Eosinophils # (A) 0.5 k/uL (0-0.7); Eosinophils % (A) 4 %; HCT 45.9 % (34.0-46.0); HGB 15.6 gm/dL (11.4-16.0); Lymphocytes # (A) 0.8 k/uL (1.0-4.8); Lymphocytes % (A) 7 %; MCH 31.1 pg (25.0-35.0); MCHC 33.9 g/dL (31.0-37.0); MCV 91.7 fL (80.0-100.0); Mean Platelet Volume 10.5; Monocytes # (A) 0.2 k/uL (0-1.0); Monocytes % (A) 2 %; Neutrophils # (A) 9.6 k/uL (1.3-7.7); Neutrophils % (A) 86 %; Platelet Count 299 k/uL (150-450); RDW 12.8 % (11.5-15.5); WBC 11.2 k/uL (3.8-10.6)
[2020-12-28 06:12] LABS: ALT 29 U/L (4-34); AST 26 U/L (14-36); African American GFR (CKD) 26 (>60 ml/min/1.73 sqM); Albumin/Globulin Ratio 1.6; Alkaline Phosphatase 66 U/L (38-126); Anion Gap 11 mmol/L; Blood Urea Nitrogen 26 mg/dL (7-17); Calcium 9.9 mg/dL (8.4-10.2); Carbon Dioxide 20 mmol/L (22-30); Chloride 108 mmol/L (98-107); Globulin 2.5 g/dL; Glucose 113 mg/dL (74-99); Magnesium 1.5 mg/dL (1.6-2.3); Non-African American GFR(CKD) 22 (>60 ml/min/1.73 sqM); Phosphorus 3.9 mg/dL (2.5-4.5); Sodium 139 mmol/L (137-145); Total Bilirubin 0.5 mg/dL (0.2-1.3); Total Protein 6.5 g/dL (6.3-8.2)
[2020-12-28 07:37] LABS: Glucose,Whole Blood 135 mg/dL (75-99)
[2020-12-28] MEDS: DONEPEZIL 10 MG TAB PO SCH (08:48)
[2020-12-28] MEDS: ATORVASTATIN 80 MG TAB PO SCH (08:48)
[2020-12-28] MEDS: LACTOBACILLUS ACIDOPH & BULGAR 1 EACH PACKET PO SCH (08:48)
[2020-12-28] MEDS: OXYBUTYNIN 10 MG TAB.ER.24 PO SCH (08:49)
[2020-12-28] MEDS ORDERED: Magnesium Replacement Protocol 1 EACH MISC MISCELLANE PRN (10:10)
[2020-12-28] MEDS ORDERED: MAG HYDROX/AL HYDROX/SIMETH 30 ML, LIDOCAINE VISCOUS 30 ML, diphenhydrAMINE ELIXIR 75 M... PO SCH ×4 (10:15)
[2020-12-28] MEDS ORDERED: CHOLECALCIFEROL 25 MCG (1000 IU) TABLET PO SCH (10:15)
[2020-12-28] MEDS: MAGNESIUM SULFATE-D5W PMX 1 GM in DEXTROSE/WATER 1 100ML.BAG IVPB SCH ×2 (10:50→12:58)
[2020-12-28 12:14] VITALS: BMI 26.2
[2020-12-28 12:14] LABS: Glucose,Whole Blood 120 mg/dL (75-99)
--- NOTE | 2020-12-28 13:04 | CONS ---
CONSULTATION REASON FOR CONSULT: Renal failure. HISTORY OF PRESENT ILLNESS: The patient is a 75-year-old female who was admitted to the hospital with complaints of decreased oral intake, increased weakness. The patient states that she had not been able to drink much prior to admission. This has been going on for about 2-3 weeks. The patient denies any prior history of kidney diseases. Her serum creatinine was 2.6 on initial admission. She is maintained on IV fluids. Creatinine down to 2.1 today. Previous serum creatinine was 1.2 on 09/18/2020. Blood pressure has been on the lower side with systolic noted at 97 mmHg. Review of home medications does not reveal any NSAIDs or LUIS inhibitors. Currently, the patient is voiding in a diaper/brief. No complaints of fever, chills, cough, diarrhea or abdominal pain. PAST MEDICAL HISTORY: Dementia, type 2 diabetes, hyperlipidemia, eczema. PAST SURGICAL HISTORY: Adenoidectomy, tonsillectomy, cholecystectomy, splenectomy, details not known. SOCIAL HISTORY: Negative for smoking, drug abuse or alcohol abuse. MEDICATIONS: Medications prior to admission included: Aricept, Anusol cream, probiotics, Ditropan, Crestor. ALLERGIES: Include CIPRO, LEVAQUIN, PEANUT BUTTER, PEANUT OIL, QUINOLONES, TRAMADOL. REVIEW OF SYSTEMS: As per HPI. Other systems negative. EXAMINATION: The patient is awake and comfortable. She is not in any acute distress. She answers questions appropriately. Blood pressure is 100/64, heart rate 97 per minute. She is afebrile. Examination of the heart S1, S2. Examination of the lungs, bilateral breath sounds are heard. Abdomen is soft, nontender. Examination of lower extremities shows no evidence of edema. APRON TRIMMER exam grossly intact. Patient able to move all 4 extremities. LAB: Show sodium 139, potassium 5.0, chloride 108 BUN of 26, serum creatinine 2.13, hemoglobin 15.6 g/dL. ASSESSMENT: 1. Acute kidney injury prerenal, currently improving with IV hydration. 2. Pyuria rule out urinary tract infection. Urine culture is pending. 3. Hypovolemia. 4. History of dementia. 5. History of dyslipidemia maintained on Lipitor. PLAN: Check ultrasound of the kidneys. Check postvoid bladder scan. Continue IV fluids. Encourage increased oral intake. Replace vitamin D. Thank you for this consultation. Will continue to follow the patient with you during her hospitalization. I will increase the vitamin D to at least 2000 units daily. MMODL / IJN: [id number] /
[2020-12-28] MEDS: INSULIN DETEMIR (LEVEMIR) 100 UNIT/ML SYR SQ SCH (13:43)
[2020-12-28] MEDS: DEXTROSE 5%-0.9% NACL 1,000 ML IV SCH (13:45)
[2020-12-28] MEDS: ACETAMINOPHEN TAB 325 MG TAB PO PRN (17:23)
[2020-12-28 17:47] LABS: Glucose,Whole Blood 135 mg/dL (75-99)
[2020-12-28 21:20] LABS: Glucose,Whole Blood 130 mg/dL (75-99)
--- NOTE | 2020-12-28 23:00 | P.PN ---
Subjective Progress Note Date: 12/28/20 Principal diagnosis: Acute on chronic renal failure dehydration 75-year-old female was admitted for acute on chronic renal failure with associated hyperkalemia an outpatient basis. Patient was sent emergency department revealing worsening renal failure with the GFR of 20. Patient has significant medical history,of diabetes mellitus type II, chronic renal failure, and dementia. Patient had extensive diagnostic workup in the emergency department revealing continue worsening of kidney function. Patient admits to decrease intake of oral fluids and decrease output over the last 3 weeks. Patient given IV hydration in the emergency department and maintaining IV isoton ic hydration for hopeful improvement in kidney function. December 28, 2020 evaluated patient this a.m. resting comfortably in bed, no acute episodes throughout the night. Review of labs kidney functions improving with IV hydration and avoidance of nephrotoxic drugs. Patient denies any complaints at this time. Will continue broad-spectrum antibiotics for possible urinary tract infection. IV hydration for dehydration with acute renal failure on chronic renal failure.Awaiting recommendations from nephrology Objective - Vital Signs Vital signs: Vital Signs Temp 98.3 F 12/28/20 20:00 Pulse 78 12/28/20 20:00 Resp 16 12/28/20 20:00 BP 102/59 12/28/20 20:00 Pulse Ox 94 L 12/28/20 20:00 Intake & Output 12/28/20 12/28/20 12/29/20 06:59 18:59 06:59 Intake Total 500 Output Total 350 200 Balance -350 300 Weight 71.668 kg Intake: IV 500 Dextrose 5%-0.9% NaCl 1, 300 000 ml @ 75 mls/hr IV . [id number] AMILCAR Rx#:[id number] Magnesium Sulfate-D5w Pmx 200 1 gm In Dextrose/Water 1 100ml.bag @ 100 mls/hr IVPB Q1H AMILCAR Rx#: [id number] Output: Urine 350 200 Other: Voiding Method Bedside Commode Bedside Commode Diaper Diaper # Voids 4 - Constitutional General appearance: Present: cooperative - EENT Eyes: Present: EOMI, PERRLA ENT: Present: hard of hearing, normal oropharynx Ears: bilateral: normal - Neck Neck: Present: normal ROM Carotids: bilateral: upstroke normal Thyroid: bilateral: normal size - Respiratory Respiratory: bilateral: CTA - Cardiovascular Heart rate: 74 Rhythm: regular Heart sounds: normal: S1, S2 - Peripheral pulses radial pulse Peripheral Pulses: bilateral: Normal dorsalis pedis Peripheral Pulses: bilateral: Normal - Gastrointestinal General gastrointestinal: Present: normal bowel sounds - Integumentary Integumentary: Present: normal - Neurologic Neurologic: Present: CNII-XII intact - Musculoskeletal Musculoskeletal: Present: generalized weakness - Psychiatric Psychiatric: Present: A&O x's 3 (With delayed response) - Allied health notes Allied health notes reviewed: nursing - Labs CBC & Chem 7: 12/28/20 04:59 12/28/20 04:59 Labs: Abnormal Lab Results - Last 24 Hours (Table) 12/28/20 12/28/20 12/28/20 Range/Units 04:59 04:59 07:35 WBC 11.2 H (3.8-10.6) k/uL Neutrophils # 9.6 H (1.3-7.7) k/uL Lymphocytes # 0.8 L (1.0-4.8) k/uL Chloride 108 H (98-107) mmol/L Carbon Dioxide 20 L (22-30) mmol/L BUN 26 H (7-17) mg/dL Creatinine 2.13 H (0.52-1.04) mg/dL Glucose 113 H (74-99) mg/dL POC Glucose (mg/dL) 135 H (75-99) mg/dL Magnesium 1.5 L (1.6-2.3) mg/dL Vitamin D 25-Hydroxy 21.0 L (30.0-100.0) ng/mL 12/28/20 12/28/20 12/28/20 Range/Units 12:13 17:46 21:19 WBC (3.8-10.6) k/uL Neutrophils # (1.3-7.7) k/uL Lymphocytes # (1.0-4.8) k/uL Chloride (98-107) mmol/L Carbon Dioxide (22-30) mmol/L BUN (7-17) mg/dL Creatinine (0.52-1.04) mg/dL Glucose (74-99) mg/dL POC Glucose (mg/dL) 120 H 135 H 130 H (75-99) mg/dL Magnesium (1.6-2.3) mg/dL Vitamin D 25-Hydroxy (30.0-100.0) ng/mL Microbiology - Last 24 Hours (Table) 12/27/20 10:40 Urine Culture - Preliminary Urine,Voided Gram Neg Bacilli Assessment and Plan Assessment: Dehydration acute on chronic renal failure diabetes mellitus type II dementia hyperlipidemia full code Plan: Dehydration, continue isotonic fluid's acute on chronic renal failure, avoid nephrotoxic drugs, consultation with nephrology for recommendations and treatment plan diabetes mellitus type II, NovoLog sliding scale Monitor vital signs and diagnostic testing continue home medications Further recommendations to come based on clinical condition Hopeful discharge in 24 hours Time with Patient: Greater than 30
[2020-12-29] MEDS: ACETAMINOPHEN TAB 325 MG TAB PO PRN ×2 (01:35→20:32)
[2020-12-29] MEDS: DEXTROSE 5%-0.9% NACL 1,000 ML IV SCH ×2 (03:19→15:21)
[2020-12-29 07:29] LABS: Glucose,Whole Blood 114 mg/dL (75-99)
[2020-12-29] MEDS: ATORVASTATIN 80 MG TAB PO SCH ×2 (08:02→10:06)
[2020-12-29] MEDS: LACTOBACILLUS ACIDOPH & BULGAR 1 EACH PACKET PO SCH (08:02)
[2020-12-29] MEDS: DONEPEZIL 10 MG TAB PO SCH ×2 (08:02→10:06)
[2020-12-29] MEDS: CHOLECALCIFEROL 25 MCG (1000 IU) TABLET PO SCH ×2 (08:02→10:06)
[2020-12-29] MEDS: OXYBUTYNIN 10 MG TAB.ER.24 PO SCH ×2 (08:02→10:06)
--- NOTE | 2020-12-29 08:49 | P.PN ---
Subjective Patient is seen in follow-up for acute kidney injury. Renal function improving. Creatinine 2.13 as of yesterday. Patient is somewhat confused and not a reliable historian. Blood pressure stable. Vital signs are stable. General: The patient appeared well nourished and normally developed. HEENT: Head exam is unremarkable. Neck is without jugular venous distension. LUNGS: Breath sounds decreased. HEART: Rate and Rhythm are regular. ABDOMEN: Soft, no distention. EXTREMITITES: No edema. Objective - Vital Signs Vital signs: Vital Signs Temp 98.1 F 12/29/20 02:00 Pulse 67 12/29/20 02:00 Resp 20 12/29/20 02:00 BP 101/70 12/29/20 02:00 Pulse Ox 98 12/29/20 02:00 Intake & Output 12/28/20 12/29/20 12/29/20 18:59 06:59 18:59 Intake Total 500 Output Total 200 800 Balance 300 -800 Weight 71.668 kg Intake: IV 500 Dextrose 5%-0.9% NaCl 1, 300 000 ml @ 75 mls/hr IV . [id number] AMILCAR Rx#:[id number] Magnesium Sulfate-D5w Pmx 200 1 gm In Dextrose/Water 1 100ml.bag @ 100 mls/hr IVPB Q1H AMILCAR Rx#: [id number] Output: Urine 200 800 Other: Voiding Method Bedside Commode Bedside Commode Diaper Diaper # Voids 1 - Labs CBC & Chem 7: 12/28/20 04:59 12/28/20 04:59 Labs: Abnormal Lab Results - Last 24 Hours (Table) 12/28/20 12/28/20 12/28/20 Range/Units 04:59 12:13 17:46 POC Glucose (mg/dL) 120 H 135 H (75-99) mg/dL Vitamin D 25-Hydroxy 21.0 L (30.0-100.0) ng/mL 12/28/20 12/29/20 Range/Units 21:19 07:27 POC Glucose (mg/dL) 130 H 114 H (75-99) mg/dL Vitamin D 25-Hydroxy (30.0-100.0) ng/mL Microbiology - Last 24 Hours (Table) 12/27/20 10:40 Urine Culture - Preliminary Urine,Voided Gram Neg Bacilli Assessment and Plan Plan: Assessment: 1. Acute kidney injury mostly prerenal due to hypovolemia, improving with IV hydration. Creatinine 2.13 as of yesterday. 2. Dementia. 3. UTI with urine culture positive for gram-negative bacilli maintained on antibiotics. Plan: Maintain IV fluids. Encourage oral intake. Check renal ultrasound. Morning labs pending.
[2020-12-29 09:30] LABS: Basophils # (A) 0.05 X 10*3/uL (0.00-0.10); Basophils % (A) 0.3 %; Eosinophils # (A) 1.23 X 10*3/uL (0.04-0.35); Eosinophils % (A) 7.5 %; HCT 46.8 % (37.2-46.3); HGB 15.4 g/dL (12.0-15.0); Lymphocytes # (A) 2.29 X 10*3/uL (0.90-5.00); MCH 30.6 pg (27.0-32.0); MCHC 32.9 g/dL (32.0-37.0); Monocytes # (A) 1.05 X 10*3/uL (0.20-1.00); Monocytes % (A) 6.4 %; Neutrophils # (A) 11.64 X 10*3/uL (1.80-7.70); Neutrophils % (A) 71.3 %; Platelet Count 270 X 10*3/uL (140-440); RBC 5.03 X 10*6/uL (4.10-5.20); RDW 13.6 % (11.5-14.5); WBC 16.34 X 10*3/uL (4.50-10.00)
[2020-12-29 10:08] LABS: African American GFR (CKD) 26.2 (60.0-200.0); Albumin 3.8 g/dL (3.80-4.90); Albumin/Globulin Ratio 1.73 (1.60-3.17); Anion Gap 10.6 mmol/L (4.00-12.00); BUN/Creat Ratio 11.43 Ratio (12.00-20.00); Calcium 8.9 mg/dL (8.7-10.3); Carbon Dioxide 19.4 mmol/L (21.6-31.8); Globulin 2.2 g/dL (1.6-3.3); Non-African American GFR(CKD) 22.6 (60.0-200.0); Potassium 4.6 mmol/L (3.5-5.5); Total Bilirubin 0.5 mg/dL (0.2-1.2)
[2020-12-29 11:34] LABS: Glucose,Whole Blood 141 mg/dL (75-99)
[2020-12-29 17:22] LABS: Glucose,Whole Blood 108 mg/dL (75-99)
[2020-12-29] MEDS: INSULIN DETEMIR (LEVEMIR) 100 UNIT/ML SYR SQ SCH (18:49)
[2020-12-29 20:34] LABS: Glucose,Whole Blood 106 mg/dL (75-99)
--- NOTE | 2020-12-29 21:51 | XR ---
EXAMINATION TYPE: XR chest 1V portable DATE OF EXAM: 12/29/2020 COMPARISON: NONE HISTORY: Shortness of breath. TECHNIQUE: Single frontal view of the chest is obtained. FINDINGS: There is no focal air space opacity, pleural effusion, or pneumothorax seen. The cardiac silhouette size is within normal limits. The osseous structures are intact. IMPRESSION: No acute process.
[2020-12-30] MEDS ORDERED: SODIUM CHLORIDE 0.9% 250 ML IV SCH ×2 (02:00→03:30)
[2020-12-30] MEDS ORDERED: SODIUM CHLORIDE 0.9% 500 ML 500 ML IV ONE (02:07)
[2020-12-30] MEDS: HEPARIN SODIUM,PORCINE/PF 5,000 UNIT/0.5 ML SYRINGE SQ SCH ×3 (02:13→21:06)
--- NOTE | 2020-12-30 03:10 | PN ---
PROGRESS NOTE DATE OF SERVICE: 12/29/2020 This 75-year-old woman who was admitted with dehydration with acute on chronic renal failure is being closely monitored at this time. The patient's creatinine is currently 2.1. White count is still elevated at 16.34. UA showed some evidence of UTI. Cultures are showing E coli which is polysensitive. Currently patient is on Rocephin IV. PAST MEDICAL HISTORY: Reviewed. REVIEW OF SYSTEMS: Could not be taken. CURRENT MEDICATIONS: Reviewed include Tylenol, Lipitor, Rocephin, vitamin D3. Doses and other medications reviewed. PHYSICAL EXAMINATION: Pulse is 94, blood pressure is ( ), respirations 16, temperature 101, pulse ox 94% on room air. HEENT: Conjunctivae normal. Oral mucosa moist. NECK: No jugular venous distention. No lymph node enlargement. CARDIOVASCULAR: S1, S2, muffled. No S3, no S4, RESPIRATORY: Diminished breath sounds at the bases. Scattered rhonchi and crackles. ABDOMEN: Soft, nontender. LEGS: No edema, no swelling. NERVOUS SYSTEM: Higher functions mentioned earlier. Moves all four limbs. No focal motor or sensory deficits. LYMPHATICS: No lymph node in neck or axilla. SKIN: No rash. JOINTS: No active deforming arthropathy. LABS: CBC within normal limits. Creatinine is 2.68. UA noted. ASSESSMENT: 1. Acute urinary tract infection with sepsis also present on admission possibly. 2. Acute on chronic renal failure. 3. Chronic kidney disease, Stage 3 baseline. 4. Dehydration. 5. History of diabetes type 2. 6. Dementia. 7. Change in mental status, metabolic encephalopathy. 8. Hyperlipidemia. 9. FULL CODE. 10.Increased WBC. 11.Dehydration. RECOMMENDATIONS: In this 75-year-old woman who presented with multiple complex medical issues, we will monitor the patient closely, continue the Rocephin. Patient is still febrile. I would recommend repeat cultures. Continue the rest of the medications. DVT prophylaxis. Insulin and as well as proton pump inhibitors. Further recommendations to follow. Prognosis guarded. MMODL / IJN: [id number] /
[2020-12-30] MEDS ORDERED: SODIUM CHLORIDE 0.9% 250 ML IV ONE (04:09)
[2020-12-30] MEDS: DEXTROSE 5%-0.9% NACL 1,000 ML IV SCH (05:45)
[2020-12-30 07:24] LABS: Basophils # (A) 0.1 k/uL (0-0.2); Basophils % (A) 0 %; Eosinophils # (A) 1.4 k/uL (0-0.7); Eosinophils % (A) 7 %; HCT 43.2 % (34.0-46.0); HGB 14.5 gm/dL (11.4-16.0); Lymphocytes # (A) 2.6 k/uL (1.0-4.8); Lymphocytes % (A) 13 %; MCH 30.8 pg (25.0-35.0); MCHC 33.6 g/dL (31.0-37.0); MCV 91.6 fL (80.0-100.0); Mean Platelet Volume 10.3; Monocytes # (A) 0.7 k/uL (0-1.0); Monocytes % (A) 3 %; Neutrophils # (A) 15.7 k/uL (1.3-7.7); Neutrophils % (A) 76 %; Platelet Count 239 k/uL (150-450); RBC 4.71 m/uL (3.80-5.40); RDW 12.9 % (11.5-15.5); WBC 20.7 k/uL (3.8-10.6)
[2020-12-30 07:38] LABS: Glucose,Whole Blood 120 mg/dL (75-99)
[2020-12-30 07:51] LABS: African American GFR (CKD) 28 (>60 ml/min/1.73 sqM); Anion Gap 9 mmol/L; Blood Urea Nitrogen 23 mg/dL (7-17); Calcium 8.2 mg/dL (8.4-10.2); Carbon Dioxide 18 mmol/L (22-30); Chloride 109 mmol/L (98-107); Glucose 123 mg/dL (74-99); Magnesium 1.7 mg/dL (1.6-2.3); Non-African American GFR(CKD) 24 (>60 ml/min/1.73 sqM); Potassium 4.5 mmol/L (3.5-5.1); Sodium 136 mmol/L (137-145)
[2020-12-30] MEDS: DONEPEZIL 10 MG TAB PO SCH ×2 (08:30→10:31)
[2020-12-30] MEDS: ATORVASTATIN 80 MG TAB PO SCH ×3 (08:30→10:30)
[2020-12-30] MEDS: CHOLECALCIFEROL 25 MCG (1000 IU) TABLET PO SCH ×2 (08:30→10:30)
[2020-12-30] MEDS: LACTOBACILLUS ACIDOPH & BULGAR 1 EACH PACKET PO SCH (08:30)
[2020-12-30] MEDS: OXYBUTYNIN 10 MG TAB.ER.24 PO SCH (08:30)
--- NOTE | 2020-12-30 09:09 | P.PN ---
Subjective Patient is seen in follow-up for acute kidney injury. Renal function a little better. Patient is confused and is not a reliable historian. Patient is quite hypotensive and received fluid boluses yesterday. Blood pressure 93/68 this morning. Vital signs are stable. General: The patient appeared well nourished and normally developed. HEENT: Head exam is unremarkable. Neck is without jugular venous distension. LUNGS: Breath sounds decreased. HEART: Rate and Rhythm are regular. ABDOMEN: Soft, no distention. EXTREMITITES: No edema. Objective - Vital Signs Vital signs: Vital Signs Temp 99.0 F 12/30/20 07:00 Pulse 90 12/30/20 08:00 Resp 18 12/30/20 08:00 BP 93/60 12/30/20 07:00 Pulse Ox 96 12/30/20 07:00 Intake & Output 12/29/20 12/30/20 12/30/20 18:59 06:59 18:59 Intake Total 236 Balance 236 Intake: Oral 236 Other: Voiding Method Bedside Commode Bedside Commode Bedside Commode Diaper Diaper Diaper # Voids 0 - Labs CBC & Chem 7: 12/30/20 06:52 12/30/20 06:52 Labs: Abnormal Lab Results - Last 24 Hours (Table) 12/29/20 12/29/20 12/29/20 Range/Units 06:04 06:04 11:32 WBC 16.34 H (4.50-10.00) X 10*3/uL Hgb 15.4 H (12.0-15.0) g/dL Hct 46.8 H (37.2-46.3) % MPV 13.0 H (9.5-12.2) fL Immature Gran # 0.08 H (0.00-0.04) X 10*3/uL Neutrophils # 11.64 H (1.80-7.70) X 10*3/uL Monocytes # 1.05 H (0.20-1.00) X 10*3/uL Eosinophils # 1.23 H (0.04-0.35) X 10*3/uL Sodium (137-145) mmol/L Chloride (98-107) mmol/L Carbon Dioxide 19.4 L (21.6-31.8) mmol/L BUN (7-17) mg/dL Creatinine 2.1 H (0.6-1.5) mg/dL Est GFR (CKD-EPI)AfAm 26.2 L (60.0-200.0) Est GFR (CKD-EPI)NonAf 22.6 L (60.0-200.0) BUN/Creatinine Ratio 11.43 L (12.00-20.00) Ratio Glucose (74-99) mg/dL POC Glucose (mg/dL) 141 H (75-99) mg/dL Calcium (8.4-10.2) mg/dL Total Protein 6.0 L (6.2-8.2) g/dL 12/29/20 12/29/20 12/30/20 Range/Units 17:20 20:32 06:52 WBC (4.50-10.00) X 10*3/uL Hgb (12.0-15.0) g/dL Hct (37.2-46.3) % MPV (9.5-12.2) fL Immature Gran # (0.00-0.04) X 10*3/uL Neutrophils # (1.80-7.70) X 10*3/uL Monocytes # (0.20-1.00) X 10*3/uL Eosinophils # (0.04-0.35) X 10*3/uL Sodium 136 L (137-145) mmol/L Chloride 109 H (98-107) mmol/L Carbon Dioxide 18 L (21.6-31.8) mmol/L BUN 23 H (7-17) mg/dL Creatinine 1.98 H (0.6-1.5) mg/dL Est GFR (CKD-EPI)AfAm (60.0-200.0) Est GFR (CKD-EPI)NonAf (60.0-200.0) BUN/Creatinine Ratio (12.00-20.00) Ratio Glucose 123 H (74-99) mg/dL POC Glucose (mg/dL) 108 H 106 H (75-99) mg/dL Calcium 8.2 L (8.4-10.2) mg/dL Total Protein (6.2-8.2) g/dL 12/30/20 12/30/20 Range/Units 06:52 07:37 WBC 20.7 H (4.50-10.00) X 10*3/uL Hgb (12.0-15.0) g/dL Hct (37.2-46.3) % MPV (9.5-12.2) fL Immature Gran # (0.00-0.04) X 10*3/uL Neutrophils # 15.7 H (1.80-7.70) X 10*3/uL Monocytes # (0.20-1.00) X 10*3/uL Eosinophils # 1.4 H (0.04-0.35) X 10*3/uL Sodium (137-145) mmol/L Chloride (98-107) mmol/L Carbon Dioxide (21.6-31.8) mmol/L BUN (7-17) mg/dL Creatinine (0.6-1.5) mg/dL Est GFR (CKD-EPI)AfAm (60.0-200.0) Est GFR (CKD-EPI)NonAf (60.0-200.0) BUN/Creatinine Ratio (12.00-20.00) Ratio Glucose (74-99) mg/dL POC Glucose (mg/dL) 120 H (75-99) mg/dL Calcium (8.4-10.2) mg/dL Total Protein (6.2-8.2) g/dL Microbiology - Last 24 Hours (Table) 12/27/20 10:40 Urine Culture - Final Urine,Voided Escherichia coli Assessment and Plan Plan: Assessment: 1. Acute kidney injury secondary to ATN secondary to hypotension. Creatinine 1.98 today. No evidence of hydronephrosis noted on kidney ultrasound done 12/26/2020. 2. Dementia. 3. UTI with urine culture positive for E. coli maintained on antibiotics. 4. Hypotension. Component of hypovolemia and infection. Rule out adrenal insufficiency. 5. Metabolic acidosis secondary to acute kidney injury and IV fluids. Plan: Maintain IV fluids. Encourage oral intake. Check cortisol level. Add oral bicarb. Monitor blood pressures closely. May require vasopressor support.
[2020-12-30] MEDS: SODIUM BICARBONATE TAB 650 MG TAB PO SCH ×3 (10:30→21:06)
[2020-12-30] MEDS: SODIUM CHLORIDE 0.9% 1,000 ML IV SCH ×2 (10:58→23:41)
[2020-12-30 12:06] LABS: Glucose,Whole Blood 127 mg/dL (75-99)
[2020-12-30 12:19] LABS: Appearance,Urine Clear (Clear); Bilirubin,Urine Negative (Negative); Blood,Urine Negative (Negative); Color,Urine Yellow; Glucose,Urine (UA) 4+ (Negative); Ketones,Urine Negative (Negative); Leukocyte Esterase,Urine Negative (Negative); Nitrite,Urine Negative (Negative); Protein,Urine Trace (Negative); Specific Gravity,Urine 1.014 (1.001-1.035); Urobilinogen,Urine <2.0 mg/dL (<2.0)
[2020-12-30] MEDS ORDERED: HYDROCORTISONE SUPPOSITORY 25 MG SUPP RECTAL PRN (15:45)
[2020-12-30] MEDS: ZINC OXIDE 20% OINT 28.4 GM TUBE TOPICAL SCH ×2 (16:05→21:06)
[2020-12-30 17:07] LABS: Glucose,Whole Blood 128 mg/dL (75-99)
[2020-12-30] MEDS: INSULIN DETEMIR (LEVEMIR) 100 UNIT/ML SYR SQ SCH (17:50)
--- NOTE | 2020-12-30 18:20 | PN ---
PROGRESS NOTE DATE OF SERVICE: 12/30/2020 INTERVAL HISTORY: This is a 75-year-old woman who was admitted with dehydration and acute on chronic renal failure, was evaluated by Nephrology. The IV fluids have been adjusted at this time. The patient also had a possibility of acute urinary tract infection with sepsis present on admission. The culture showed E coli which was poly sensitive, but however the patient was running some fever. Infectious Disease evaluation has been sought. PAST MEDICAL HISTORY: Reviewed. REVIEW OF SYMPTOMS: Could not be taken. The patient is confused. CURRENT MEDICATIONS: Tylenol, Lipitor, Rocephin, vitamin D3, Lomotil, Aricept, Levemir, Lactinex. PHYSICAL EXAM: GENERAL: Patient is conscious, confused. VITAL SIGNS: Pulse 82, blood pressure 87/52, respirations 16, temperature 99.2, pulse ox 94% on room air. HEENT: Conjunctivae normal. NECK: No jugular venous distention. No carotid bruits. No lymph node enlargement. RESPIRATORY: Breath sounds diminished at the bases. Scattered rhonchi. HEART: S1 and S2, muffled. ABDOMEN: Soft, no tenderness. No masses palpable. EXTREMITIES: No edema, no swelling. NERVOUS: No focal deficits. LABS: WBC 20.7, sodium 136 and creatinine is 1.98. ASSESSMENT: 1. Acute urinary tract infection with sepsis secondary to E coli present on admission. 2. Acute on chronic renal failure with acute tubular necrosis with prerenal acute tubular necrosis. 3. Chronic kidney disease stage 3 baseline. 4. Relative hypotension. 5. Dehydration, present on admission. 6. Diabetes mellitus type 2. 7. Dementia. 8. Change in mental status acute on chronic metabolic encephalopathy. 9. Hyperlipidemia. 10.Increased WBC. 11.Dehydration. 12.FULL CODE. RECOMMENDATION AND DISCUSSION: In this 75-year-old woman who presented with multiple complex medical issues, we will monitor the patient closely. Continue the current management and continue symptomatic treatment. The patient has elevated WBC at this time. I would recommend repeat labs. Infectious Disease evaluation. Guarded prognosis. Closely follow with Nephrology with IV fluids. Prognosis guarded. Discussed with the patient's daughter at the bedside. Further recommendations to follow. MMODL / IJN: [id number] /
[2020-12-30 20:46] LABS: Glucose,Whole Blood 108 mg/dL (75-99)
[2020-12-31] MEDS ORDERED: SODIUM CHLORIDE 0.9% 500 ML 500 ML IV ONE (02:52)
[2020-12-31 07:03] LABS: Glucose,Whole Blood 81 mg/dL (75-99)
[2020-12-31] MEDS: INSULIN DETEMIR (LEVEMIR) 100 UNIT/ML SYR SQ SCH (07:31)
[2020-12-31] MEDS: LACTOBACILLUS ACIDOPH & BULGAR 1 EACH PACKET PO SCH (07:31)
[2020-12-31] MEDS: HEPARIN SODIUM,PORCINE/PF 5,000 UNIT/0.5 ML SYRINGE SQ SCH ×3 (07:31→21:22)
--- NOTE | 2020-12-31 07:32 | CONS ---
CONSULTATION DATE OF SERVICE: 12/30/2020 REASON FOR CONSULTATION: Fever. HISTORY OF PRESENT ILLNESS: The patient is a 75 -year-old female with a past medical history significant for renal insufficiency in this patient who was sent to the ER from her primary care physician hospital about 4 days ago, as the patient was noticed to have a elevated 5.7, and now is on. Patient does not have any symptoms except some weakness. On presentation to the hospital, the patient was afebrile. She did spike a fever of 100.2 on the December 28 and did spike a fever of 101 degrees Fahrenheit last evening that has prompted this infectious disease consultation. Patient who did have a white count of 11,000 on admission is up to 16.3 yesterday, blood count 20.7 today. The patient did have elevated BUN and creatinine. However, the patient's creatinine is down to 1.9 compared to 2.6 on admission and electrolytes have been normal. Liver enzymes are normal. The patient did have a positive UA on admission, large leukocyte esterases and 9 WBC and urine culture did grow E coli for which the patient is on Rocephin. Repeat urine done this morning is negative. Because of the fever, Infectious Disease was consulted. The patient did not have any fever since last night. The patient denies having any headache or URI symptoms. The patient denies having any chest pain or shortness of breath. Very minimal cough. No nausea, vomiting, abdominal pain or any diarrhea. REVIEW OF SYSTEMS: Positive points have been mentioned in HPI. Rest of the systems are negative. PAST MEDICAL HISTORY: Dementia, diabetes mellitus, renal insufficiency. PAST SURGICAL HISTORY: Appendectomy, cholecystectomy, tonsillectomy. SOCIAL HISTORY: No history of smoking, drinking or any drug use. FAMILY HISTORY: No pertinent findings noticed. ALLERGIES: CIPROFLOXACIN, LEVAQUIN, TRAMADOL, MEDICATIONS: The patient is currently on Tylenol, Lipitor, Rocephin 1 g daily, she is on Vitamin D3, Aricept, heparin, Levemir, and Lactinex, zinc oxide, Narcan, Ditropan, IV fluid. PHYSICAL EXAMINATION: Blood pressure 100/58 with a pulse of 87, temperature of 97.9. She is 93% on room air. General description: The patient is an elderly female lying in bed in no distress. No tachypnea or accessory muscles of respiration use. HEENT: Examination shows no pallor or scleral icterus. Oral mucous membranes dry. NECK: Trachea central. No thyromegaly. LUNGS unlabored breathing. Clear to auscultation anteriorly. No wheeze or crackles. HEART S1, S2. Regular rate and rhythm. ABDOMEN: Soft, no tenderness. No guarding. No rigidity. EXTREMITIES: No edema of the feet. SKIN: No rash or mass palpable. NEUROLOGICAL: Patient is awake, alert, oriented times three. Mood and affect normal. LABS: Hemoglobin 14.4, white count 20.7, BUN of 24, creatinine is 2.1. Electrolytes are normal. Liver enzymes are normal. Admission UA was positive. Repeat urine is negative. Chest x-ray was negative. DIAGNOSTIC IMPRESSION AND PLAN: Patient presented to hospital with abnormal labs with elevated potassium. The patient did not have any fever on admission. Subsequently did spike a fever and now has evidence of elevated white count. Repeat urine was positive. However, subsequent urine is negative. Chest x-ray did not show any evidence of pneumonia and no evidence of any cellulitis, concern of possible abdominal source. PLAN: 1. We will obtain a CT of abdomen and pelvis with oral contrast only. 2. Continue the patient on the Rocephin 1 g daily. 3. Gentle IV fluid. 4. We will follow on clinical condition and culture to further adjust medication if needed. Thank you for this consultation. Will follow this patient along with you. MMODL / IJN: [id number] /
[2020-12-31] MEDS: CHOLECALCIFEROL 25 MCG (1000 IU) TABLET PO SCH (07:37)
[2020-12-31] MEDS: DONEPEZIL 10 MG TAB PO SCH (07:37)
[2020-12-31] MEDS: ATORVASTATIN 80 MG TAB PO SCH (07:37)
[2020-12-31] MEDS: SODIUM BICARBONATE TAB 650 MG TAB PO SCH ×3 (07:38→21:19)
[2020-12-31] MEDS: OXYBUTYNIN 10 MG TAB.ER.24 PO SCH (07:39)
[2020-12-31] MEDS: ZINC OXIDE 20% OINT 28.4 GM TUBE TOPICAL SCH ×3 (07:39→21:23)
--- NOTE | 2020-12-31 09:28 | P.PN ---
Subjective Patient is seen in follow-up for acute kidney injury. Renal function a little better. Creatinine 1.98 yesterday. Patient is confused and is not a reliable historian. Blood pressure stable in the systolic 90s. Awake and alert. No chest pain or shortness of breath. Vital signs are stable. General: The patient appeared well nourished and normally developed. HEENT: Head exam is unremarkable. Neck is without jugular venous distension. LUNGS: Breath sounds decreased. HEART: Rate and Rhythm are regular. ABDOMEN: Soft, no distention. EXTREMITITES: No edema. Objective - Vital Signs Vital signs: Vital Signs Temp 98.7 F 12/31/20 06:49 Pulse 95 12/31/20 06:49 Resp 16 12/31/20 06:49 BP 91/56 12/31/20 06:49 Pulse Ox 93 L 12/31/20 06:49 Intake & Output 12/30/20 12/31/20 12/31/20 18:59 06:59 18:59 Intake Total 400 Output Total 238 Balance 162 Intake: Oral 400 Output: Post Void Residual 238 Other: Voiding Method Bedside Commode Bedside Commode Bedside Commode Diaper Diaper Diaper # Voids 2 1 1 # Bowel Movements 1 - Labs CBC & Chem 7: 12/30/20 06:52 12/30/20 06:52 Labs: Abnormal Lab Results - Last 24 Hours (Table) 12/30/20 12/30/20 12/30/20 Range/Units 09:21 12:04 17:06 POC Glucose (mg/dL) 127 H 128 H (75-99) mg/dL Urine Protein Trace H (Negative) Urine Glucose (UA) 4+ H (Negative) 12/30/20 Range/Units 20:45 POC Glucose (mg/dL) 108 H (75-99) mg/dL Urine Protein (Negative) Urine Glucose (UA) (Negative) Microbiology - Last 24 Hours (Table) 12/29/20 22:24 Blood Culture - Preliminary Blood No Growth after 24 hours Assessment and Plan Plan: Assessment: 1. Acute kidney injury secondary to ATN secondary to hypotension. Creatinine 1.98 . N yesterdayo evidence of hydronephrosis noted on kidney ultrasound done 12/26/2020. 2. Dementia. 3. UTI with urine culture positive for E. coli maintained on antibiotics. Infectious disease following. 4. Hypotension. Component of hypovolemia and infection. Rule out adrenal insufficiency. 5. Metabolic acidosis secondary to acute kidney injury and IV fluids. Maintained on oral bicarbonate. Plan: Maintain IV fluids. Follow-up cortisol level. Morning labs pending. Follow-up CAT scan of the abdomen and pelvis. Monitor hemodynamics closely. May require vasopressor support.
[2020-12-31 10:24] LABS: Basophils # (A) 0.04 X 10*3/uL (0.00-0.10); Basophils % (A) 0.2 %; Eosinophils # (A) 1.41 X 10*3/uL (0.04-0.35); HCT 37.5 % (37.2-46.3); HGB 12.4 g/dL (12.0-15.0); Lymphocytes # (A) 3.18 X 10*3/uL (0.90-5.00); Lymphocytes % (A) 18.1 %; MCH 30.6 pg (27.0-32.0); MCHC 33.1 g/dL (32.0-37.0); MCV 92.6 fL (80.0-97.0); Mean Platelet Volume 12.9 fL (9.5-12.2); Monocytes # (A) 1.32 X 10*3/uL (0.20-1.00); Monocytes % (A) 7.5 %; Neutrophils # (A) 11.49 X 10*3/uL (1.80-7.70); Neutrophils % (A) 65.6 %; Platelet Count 223 X 10*3/uL (140-440); RBC 4.05 X 10*6/uL (4.10-5.20); RDW 13.8 % (11.5-14.5); WBC 17.55 X 10*3/uL (4.50-10.00)
[2020-12-31] MEDS: IOPAMIDOL CONTRAST (ORAL USE) VIAL PO PRN ×2 (11:18→12:19)
[2020-12-31 12:18] LABS: Glucose,Whole Blood 101 mg/dL (75-99)
--- NOTE | 2020-12-31 14:16 | CT ---
EXAMINATION TYPE: CT abdomen pelvis wo con DATE OF EXAM: 12/31/2020 COMPARISON: None HISTORY: 75-year-old female Fever, Diarrhea CT DLP: 734 mGycm. Automated exposure control for dose reduction was used. TECHNIQUE: Contiguous axial scanning of the abdomen and pelvis without IV contrast. Coronal and sagit vikki reconstructions performed. FINDINGS: Heart normal size with trace anterior basilar pericardial fluid. Suggestion of a trace left effusion as well with patchy opacity at the left base. Background of moderate emphysema. Low attenuation of the hepatic parenchyma suggesting fatty infiltration. Cholecystectomy clips. Adrenal glands, left kidney, and pancreas show no gross abnormality by noncontrast CT. There are clustered bowel loops within the left upper quadrant. The spleen is either absent or a resi dual small 2.6 cm splenule is present. Difficult to determine due to the clustered small bowel loops here. No dilated small bowel, free fluid, or free air. No mesenteric or retroperitoneal lymphadenopathy. Vague 1 cm hypodensity anterior mid to lower pole right kidney too small for accurate CT characteriza tion, probable small cyst. Mild fullness of the right-sided renal collecting system may be transient. No ureteric dilatation or nephrolithiasis. Normal appendix. Oral contrast progressed to the rectum. There is mid to distal sigmoid diverticulosi s. No significant stool burden. No pericolonic inflammatory change. Bladder is urine distended. Prominent external iliac chain lymph nodes measuring up to 9 mm and numbe r of bilateral inguinal lymph nodes which are nonenlarged measuring up to 1.0 cm. No abnormal fluid c ollection the pelvis. Pelvic phleboliths. Uterus anteverted. Both ovaries are visualized. There is a 5.3 cm cystic lesion of the right ovary. Bones: Mild facet arthropathy mid to lower lumbar spine. IMPRESSION: 1. Oral contrast progressed to the rectum. There is mid to distal sigmoid diverticulosis without acut e diverticulitis. 2. A trace left pleural effusion with some patchy left basilar atelectasis versus infiltrate. Correla te to exclude some patchy pneumonia. 3. Mild fullness of the right renal collecting system a probably transient. Consider short interval f ollow-up renal ultrasound. No nephrolithiasis. 4. Prominent but nonenlarged bilateral external iliac chain and bilateral neural lymph nodes are prob ably reactive and can be followed up clinically. 5. A 5.3 cm cystic right ovarian lesion is abnormal in a postmenopausal female. Pelvic ultrasound can better characterize and determine subsequent follow-up recommendations.
[2020-12-31] MEDS: SODIUM CHLORIDE 0.9% 1,000 ML IV SCH (15:49)
--- NOTE | 2020-12-31 16:44 | PN ---
PROGRESS NOTE DATE OF SERVICE: 12/31/2020. INTERVAL HISTORY: This 76-year-old woman who was admitted with acute UTI with sepsis secondary to E coli is being closely monitored at this time. The patient is still confused and abdominal pelvis CAT scan was done today which showed trace pleural effusion, mild fullness, reactive lymphadenopathy and a 5.3 cm ovarian cyst. The patient had no chest pain or palpitation. EXAM: GENERAL: The patient is mildly confused. VITAL SIGNS: Pulse 70, blood pressure 91/53, respirations 16, temperature 97.2, pulse ox 98% on room air. HEENT: Conjunctivae normal. CARDIOVASCULAR: Normal. LUNGS: Normal respirations at the bases, a few scattered rhonchi. ABDOMEN: Soft, non-tender. NERVOUS SYSTEM: Nonfocal. LAB STUDIES: WBC 17.5. Other labs are noted. ASSESSMENT: 1. Acute urinary tract infection with sepsis secondary to E coli present on admission. 2. Acute on chronic renal failure with acute tubular necrosis with prerenal acute renal failure. 3. Continued fever. 4. Chronic kidney stage 3 baseline. 5. Relative hypotension. 6. Dehydration, present on admission. 7. Diabetes mellitus type 2. 8. Dementia. 9. Change in mental status with acute on chronic metabolic encephalopathy. 10.Hyperlipidemia. 11.History of PVC. 12.Dehydration. 13.FULL CODE. RECOMMENDATIONS AND DISCUSSION: Continue current management and treatment. Otherwise at this time I would recommend to continue the antibiotics. CT scan no noted multiple embolism, multiple abnormalities otherwise. Dr. Majano is also following the patient closely. Prognosis guarded. Further recommendations. Dr. Stevan Zuniga will follow-up tomorrow. MMKOBIL / YUMIKO: [id number] /
[2020-12-31 17:20] LABS: Glucose,Whole Blood 99 mg/dL (75-99)
[2020-12-31 19:30] LABS: African American GFR (CKD) 36.4 (60.0-200.0); Anion Gap 12.3 mmol/L (4.00-12.00); BUN/Creat Ratio 11.88 Ratio (12.00-20.00); Calcium 7.7 mg/dL (8.7-10.3); Carbon Dioxide 18.7 mmol/L (21.6-31.8); Magnesium 1.5 mg/dL (1.5-2.4); Non-African American GFR(CKD) 31.4 (60.0-200.0); Potassium 4.4 mmol/L (3.5-5.5)
[2020-12-31 19:56] LABS: Glucose,Whole Blood 99 mg/dL (75-99)
--- NOTE | 2020-12-31 21:59 | PN ---
PROGRESS NOTE DATE OF SERVICE: 12/31/2020. REASON FOR FOLLOWUP: Fever, possible pneumonitis, UTI. INTERVAL HISTORY: Patient overall feeling better, has improved. The patient denies having any chest pain or shortness of breath. Occasional cough. No vomiting. No abdominal pain. No diarrhea. PHYSICAL EXAMINATION: Blood pressure 91/56, pulse of 70, temperature is 98, pulse ox 98% on room air. GENERAL DESCRIPTION: An elderly female lying in in no distress. RESPIRATORY SYSTEM: Unlabored breathing, decreased breath sounds in the bases. HEART: S1, S2. Regular rate and rhythm. EXTREMITIES: No edema of the feet. LABS: Hemoglobin is 12.8, white count 17.55. Stool for C difficile is negative. Urine with E coli. Blood culture negative. CT concern for possible pneumonitis. DIAGNOSTIC IMPRESSION AND PLAN: Patient with fever, elevated white count. Admitted to hospital with abnormal lab: Concern for possible pneumonia with question of aspiration. Antibiotic adjusted to Zosyn and see clinical response and monitor clinical course closely. MMODL / IJN: [id number] /
[2020-12-31] MEDS: PIPERACILLIN-TAZOBACTAM 3.375 GM in SODIUM CHLORIDE 0.9% 100 ML IVPB SCH (23:55)
[2021-01-01] MEDS: SODIUM CHLORIDE 0.9% 1,000 ML IV SCH ×2 (03:22→21:46)
[2021-01-01 07:27] LABS: Glucose,Whole Blood 87 mg/dL (75-99)
[2021-01-01] MEDS ORDERED: SODIUM CHLORIDE 0.9% 500 ML 500 ML IV ONE (07:35)
[2021-01-01] MEDS: SODIUM BICARBONATE TAB 650 MG TAB PO SCH ×3 (09:49→21:50)
[2021-01-01] MEDS: PIPERACILLIN-TAZOBACTAM 3.375 GM in SODIUM CHLORIDE 0.9% 100 ML IVPB SCH (09:49)
[2021-01-01] MEDS: CHOLECALCIFEROL 25 MCG (1000 IU) TABLET PO SCH (09:49)
[2021-01-01] MEDS: DONEPEZIL 10 MG TAB PO SCH (09:49)
[2021-01-01] MEDS: ATORVASTATIN 80 MG TAB PO SCH (09:49)
[2021-01-01] MEDS: LACTOBACILLUS ACIDOPH & BULGAR 1 EACH PACKET PO SCH (09:50)
[2021-01-01] MEDS: HEPARIN SODIUM,PORCINE/PF 5,000 UNIT/0.5 ML SYRINGE SQ SCH ×2 (09:51→21:49)
[2021-01-01] MEDS: ZINC OXIDE 20% OINT 28.4 GM TUBE TOPICAL SCH ×3 (09:52→21:50)
[2021-01-01] MEDS: OXYBUTYNIN 10 MG TAB.ER.24 PO SCH (09:52)
[2021-01-01] MEDS: INSULIN DETEMIR (LEVEMIR) 100 UNIT/ML SYR SQ SCH (10:17)
--- NOTE | 2021-01-01 10:46 | P.PN ---
Subjective Patient is seen in follow-up for acute kidney injury. Renal function improving. Creatinine 1.6 as of yesterday. Patient is confused and is not a reliable historian. Blood pressure stable in the systolic 90s. Awake and alert. No chest pain or shortness of breath. No changes overnight. Vital signs are stable. General: The patient appeared well nourished and normally developed. HEENT: Head exam is unremarkable. Neck is without jugular venous distension. LUNGS: Breath sounds decreased. HEART: Rate and Rhythm are regular. ABDOMEN: Soft, no distention. EXTREMITITES: No edema. Objective - Vital Signs Vital signs: Vital Signs Temp 98.1 F 01/01/21 07:00 Pulse 84 01/01/21 08:00 Resp 16 01/01/21 08:00 BP 96/59 01/01/21 07:00 Pulse Ox 97 01/01/21 07:00 Intake & Output 12/31/20 01/01/21 01/01/21 18:59 06:59 18:59 Intake Total 700 Balance 700 Intake: Intake, IV Titration 700 Amount Piperacillin-Tazobactam 3 100 .375 gm In Sodium Chloride 0.9% 100 ml @ 25 mls/hr IVPB Q8HR [facility] Rx# :[id number] Sodium Chloride 0.9% 1, 600 000 ml @ 75 mls/hr IV . [id number] [facility] Rx#:[id number] Other: Voiding Method Bedside Commode Toilet Toilet Diaper Bedside Commode Bedside Commode Diaper Diaper # Voids 1 # Bowel Movements 1 - Labs CBC & Chem 7: 12/31/20 04:48 12/31/20 04:48 Labs: Abnormal Lab Results - Last 24 Hours (Table) 12/31/20 12/31/20 Range/Units 04:48 12:14 Chloride 111 H (96-109) mmol/L Carbon Dioxide 18.7 L (21.6-31.8) mmol/L Anion Gap 12.30 H (4.00-12.00) mmol/L Creatinine 1.6 H (0.6-1.5) mg/dL Est GFR (CKD-EPI)AfAm 36.4 L (60.0-200.0) Est GFR (CKD-EPI)NonAf 31.4 L (60.0-200.0) BUN/Creatinine Ratio 11.88 L (12.00-20.00) Ratio POC Glucose (mg/dL) 101 H (75-99) mg/dL Calcium 7.7 L (8.7-10.3) mg/dL Microbiology - Last 24 Hours (Table) 12/29/20 22:24 Blood Culture - Preliminary Blood No Growth after 48 hours Assessment and Plan Plan: Assessment: 1. Acute kidney injury secondary to ATN secondary to hypotension. Creatinine 1.6 as of yesterday. No evidence of hydronephrosis noted on kidney ultrasound done 12/26/2020. UA fairly benign. 2. Dementia. 3. UTI with urine culture positive for E. coli maintained on antibiotics. Also concern for pneumonia. Infectious disease following. 4. Hypotension. Component of hypovolemia and infection. Rule out adrenal insufficiency. 5. Metabolic acidosis secondary to acute kidney injury and IV fluids. Maintained on oral bicarbonate. Plan: Maintain IV fluids. Encouraged oral intake. Follow-up cortisol level - will call lab. Monitor hemodynamics closely. Add midodrine.
[2021-01-01] MEDS ORDERED: methylPREDNISolone SOD SUCCI 125 MG/2 ML VIAL IV STA (11:13)
[2021-01-01] MEDS ORDERED: FAMOTIDINE 20 MG/2 ML VIAL IV SCH (11:15)
[2021-01-01] MEDS: MEGESTROL 400 MG/10 ML CUP PO SCH ×2 (11:44→12:36)
[2021-01-01 11:47] LABS: HCT 37.4 % (37.2-46.3); HGB 12.4 g/dL (12.0-15.0); MCH 30.3 pg (27.0-32.0); MCHC 33.2 g/dL (32.0-37.0); MCV 91.4 fL (80.0-97.0); Mean Platelet Volume 13.2 fL (9.5-12.2); Platelet Count 245 X 10*3/uL (140-440); RBC 4.09 X 10*6/uL (4.10-5.20); RDW 14.1 % (11.5-14.5)
[2021-01-01 11:48] LABS: Basophils # (M) 0 X 10*3/uL (0.00-0.10); Eosinophils # (M) 1.03 X 10*3/uL (0.04-0.35); Lymphocytes # (M) 2.94 X 10*3/uL (0.90-5.00); Monocytes # (M) 1.47 X 10*3/uL (0.20-1.00); Neutrophils # (M) 9.26 X 10*3/uL (2.00-8.90); Neutrophils % (M) 63 %
--- NOTE | 2021-01-01 11:48 | XR ---
EXAMINATION TYPE: XR chest 2V DATE OF EXAM: 01/01/2021 COMPARISON: 12/29/2020 HISTORY: Cough TECHNIQUE: Frontal and lateral views of the chest are obtained. FINDINGS: The lungs are hyperinflated with prominence of the interstitium, unchanged. Cardiac silhouette is unchanged. IMPRESSION: No acute cardiopulmonary process.
[2021-01-01 12:08] LABS: Glucose,Whole Blood 102 mg/dL (75-99)
[2021-01-01] MEDS: MIDODRINE 5 MG TAB PO SCH ×2 (12:36→17:30)
[2021-01-01] MEDS ORDERED: IPRATROPIUM-ALBUTEROL 3 ML NEB INHALATION STA (13:53)
[2021-01-01] MEDS ORDERED: diphenhydrAMINE 50 MG/ML 1 ML VIAL IVP ONE (13:54)
[2021-01-01 16:21] LABS: African American GFR (CKD) 36.4 (60.0-200.0); Albumin/Globulin Ratio 1.76 (1.60-3.17); Anion Gap 9.1 mmol/L (4.00-12.00); BUN/Creat Ratio 10.63 Ratio (12.00-20.00); Calcium 8.1 mg/dL (8.7-10.3); Carbon Dioxide 17.9 mmol/L (21.6-31.8); Globulin 1.7 g/dL (1.6-3.3); Magnesium 1.5 mg/dL (1.5-2.4); Non-African American GFR(CKD) 31.4 (60.0-200.0); Potassium 4.1 mmol/L (3.5-5.5); Total Bilirubin 0.5 mg/dL (0.2-1.2); Total Protein 4.7 g/dL (6.2-8.2)
[2021-01-01 17:19] LABS: Glucose,Whole Blood 186 mg/dL (75-99)
--- NOTE | 2021-01-01 20:54 | P.PN ---
Subjective Progress Note Date: 01/01/21 Principal diagnosis: Acute on chronic renal failure Acute urinary tract infection dehydration 75-year-old female was admitted for acute on chronic renal failure with associated hyperkalemia an outpatient basis. Patient was sent emergency department revealing worsening renal failure with the GFR of 20. Patient has significant medical history,of diabetes mellitus type II, chronic renal failure, and dementia. Patient had extensive diagnostic workup in the emergency de partment revealing continue worsening of kidney function. Patient admits to decrease intake of oral fluids and decrease output over the last 3 weeks. Patient given IV hydration in the emergency department and maintaining IV isotonic hydration for hopeful improvement in kidney function. December 28, 2020 evaluated patient this a.m. resting comfortably in bed, no acute episodes throughout the night. Review of labs kidney functions improving with IV hydration and avoidance of nephrotoxic drugs. Patient denies any complaints at this time. Will continue broad-spectrum antibiotics for possible urinary tract infection. IV hydration for dehydration with acute renal failure on chronic renal failure.Awaiting recommendations from nephrology January 01, 2021 evaluated patient this a.m. resting comfortably in bed, no acute episodes throughout the night. Renal function is improving with IV hydration and av oidance of nephrotoxic drugs. Infectious disease has transition from Rocephin to Zosyn due to leukocytosis with intermittent fevers. Patient endorses chills, generalized weakness and memory impairment.Patient in no apparent acute signs of distress Objective - Vital Signs Vital signs: Vital Signs Temp 98.0 F 01/01/21 19:39 Pulse 81 01/01/21 19:39 Resp 18 01/01/21 19:39 BP 98/63 01/01/21 19:39 Pulse Ox 95 01/01/21 19:39 Intake & Output 01/01/21 01/01/21 01/02/21 06:59 18:59 06:59 Intake Total 700 Balance 700 Weight 71.668 kg Intake: Intake, IV Titration 700 Amount Piperacillin-Tazobactam 3 100 .375 gm In Sodium Chloride 0.9% 100 ml @ 25 mls/hr IVPB Q8HR [facility] Rx# :[id number] Sodium Chloride 0.9% 1, 600 000 ml @ 75 mls/hr IV . [id number] [facility] Rx#:[id number] Other: Voiding Method Toilet Toilet Bedside Commode Bedside Commode Diaper Diaper - Constitutional General appearance: Present: cooperative - EENT Eyes: Present: EOMI, PERRLA ENT: Present: normal oropharynx Ears: bilateral: normal - Neck Neck: Present: normal ROM Carotids: bilateral: upstroke normal Thyroid: bilateral: normal size - Respiratory Respiratory: bilateral: CTA (Anterior and posterior lung lomas) - Cardiovascular Details: Normal sinus rhythm Heart rate: 78 Rhythm: regular Heart sounds: normal: S1, S2 - Peripheral edema ankle Peripheral Edema: bilateral: Trace - Peripheral pulses radial pulse Peripheral Pulses: bilateral: Normal dorsalis pedis Peripheral Pulses: bilateral: Normal - Gastrointestinal General gastrointestinal: Present: normal bowel sounds - Integumentary Integumentary: Present: flushed - Neurologic Neurologic: Present: CNII-XII intact - Musculoskeletal Musculoskeletal: Present: generalized weakness - Psychiatric Psychiatric Comment(s): Pleasantly confused alert to person in place disorientation to time and situation baseline mental status - Allied health notes Allied health notes reviewed: nursing - Labs CBC & Chem 7: 01/01/21 05:54 01/01/21 05:54 Labs: Abnormal Lab Results - Last 24 Hours (Table) 01/01/21 01/01/21 01/01/21 Range/Units 05:54 05:54 11:04 WBC 14.70 H (4.50-10.00) X 10*3/uL RBC 4.09 L (4.10-5.20) X 10*6/uL MPV 13.2 H (9.5-12.2) fL Neutrophils # (Manual) 9.26 H (2.00-8.90) X 10*3/uL Monocytes # (Manual) 1.47 H (0.20-1.00) X 10*3/uL Eosinophils # (Manual) 1.03 H (0.04-0.35) X 10*3/uL Chloride 114 H (96-109) mmol/L Carbon Dioxide 17.9 L (21.6-31.8) mmol/L Creatinine 1.6 H (0.6-1.5) mg/dL Est GFR (CKD-EPI)AfAm 36.4 L (60.0-200.0) Est GFR (CKD-EPI)NonAf 31.4 L (60.0-200.0) BUN/Creatinine Ratio 10.63 L (12.00-20.00) Ratio POC Glucose (mg/dL) (75-99) mg/dL Calcium 8.1 L (8.7-10.3) mg/dL C-Reactive Protein 5.2 H (<1.0) mg/dL Total Protein 4.7 L (6.2-8.2) g/dL Albumin 3.00 L (3.80-4.90) g/dL Procalcitonin (0.02-0.09) ng/mL 01/01/21 01/01/21 01/01/21 Range/Units 11:04 12:07 17:17 WBC (4.50-10.00) X 10*3/uL RBC (4.10-5.20) X 10*6/uL MPV (9.5-12.2) fL Neutrophils # (Manual) (2.00-8.90) X 10*3/uL Monocytes # (Manual) (0.20-1.00) X 10*3/uL Eosinophils # (Manual) (0.04-0.35) X 10*3/uL Chloride (96-109) mmol/L Carbon Dioxide (21.6-31.8) mmol/L Creatinine (0.6-1.5) mg/dL Est GFR (CKD-EPI)AfAm (60.0-200.0) Est GFR (CKD-EPI)NonAf (60.0-200.0) BUN/Creatinine Ratio (12.00-20.00) Ratio POC Glucose (mg/dL) 102 H 186 H (75-99) mg/dL Calcium (8.7-10.3) mg/dL C-Reactive Protein (<1.0) mg/dL Total Protein (6.2-8.2) g/dL Albumin (3.80-4.90) g/dL Procalcitonin 0.28 H (0.02-0.09) ng/mL Microbiology - Last 24 Hours (Table) 12/29/20 22:24 Blood Culture - Preliminary Blood No Growth after 48 hours Assessment and Plan Assessment: Dehydration acute on chronic renal failure Chronic renal failure stage III Acute urinary tract infection leukocytosis diabetes mellitus type II dementia hyperlipidemia full code Plan: Dehydration, continue isotonic fluid's acute on chronic renal failure, avoid nephrotoxic drugs, consultation with nephrology for recommendations and treatment plan Acute urinary tract infection, continue broad-spectrum antibiotics leukocytosis, continue to monitor diabetes mellitus type II,Continue to monitor blood sugars Monitor vital signs and diagnostic testing continue home medications Further recommendations to come based on clinical condition Hopeful discharge in 24 to 48 hours Time with Patient: Greater than 30
--- NOTE | 2021-01-01 20:58 | P.PN ---
Progress Note - Text Progress Note Date: 01/01/21 Notified by nursing staff patient possibly having allergic reaction to Zosyn, patient exhibiting hives. Zosyn stopped and discontinued. Orders for Solu- Medrol, Pepcid, Benadryl, and albuterol. Order for monitor for worsening signs of allergic reaction to Zosyn.
[2021-01-01] MEDS: CEFDINIR 300 MG CAP PO SCH (21:49)
[2021-01-02 03:25] VITALS: TEMP 97.7
--- NOTE | 2021-01-02 04:59 | PN ---
PROGRESS NOTE DATE OF SERVICE: 01/01/2021 REASON FOR FOLLOWUP: Pneumonia and UTI. INTERVAL HISTORY: Patient was seen on rounds early this afternoon. The patient has been afebrile. The patient has been breathing more comfortably. The patient did have occasional cough. Not bringing up any sputum. No vomiting. No abdominal pain. No diarrhea. PHYSICAL EXAMINATION: Blood pressure is 98/63, pulse of 81, temperature of 98. She is 95% on room air. General description is an elderly female up in the chair in no distress. Respiratory system: Unlabored breathing, decreased intensity of breath sounds. No wheeze. Heart S1, S2. Regular rate and rhythm. Abdomen soft, no tenderness. Extremities: No edema of the feet. LABS: White count is down to 14.7, negative. Creatinine is 1.6. DIAGNOSTIC IMPRESSION AND PLAN: Patient with a fever and elevated white count with an E coli urinary tract infection and with a question of a pneumonia. The patient did well on Zosyn. However did receive a call from the admitting physician with possible reaction. Antibiotic was switched over to and monitor clinical course closely. Family member at the bedside. Questions and concerns were answered at the time of evaluation this afternoon. MMODL / IJN: [id number] /
[2021-01-02] MEDS ORDERED: INSULIN DETEMIR (LEVEMIR) 100 UNIT/ML SYR SQ SCH (07:00)
[2021-01-02 07:32] LABS: Glucose,Whole Blood 156 mg/dL (75-99)
[2021-01-02] MEDS: MIDODRINE 5 MG TAB PO SCH ×2 (08:02→16:20)
[2021-01-02] MEDS: CHOLECALCIFEROL 25 MCG (1000 IU) TABLET PO SCH (08:08)
[2021-01-02] MEDS: SODIUM BICARBONATE TAB 650 MG TAB PO SCH ×2 (08:08→15:26)
[2021-01-02] MEDS: LACTOBACILLUS ACIDOPH & BULGAR 1 EACH PACKET PO SCH (08:08)
[2021-01-02] MEDS: DONEPEZIL 10 MG TAB PO SCH (08:08)
[2021-01-02] MEDS: OXYBUTYNIN 10 MG TAB.ER.24 PO SCH (08:08)
[2021-01-02] MEDS: CEFDINIR 300 MG CAP PO SCH (08:09)
[2021-01-02] MEDS: INSULIN ASPART (NovoLOG) 100 UNIT/ML VIAL SQ SCH ×2 (08:14→12:18)
[2021-01-02] MEDS: HEPARIN SODIUM,PORCINE/PF 5,000 UNIT/0.5 ML SYRINGE SQ SCH (08:14)
[2021-01-02] MEDS: ZINC OXIDE 20% OINT 28.4 GM TUBE TOPICAL SCH ×2 (08:38→15:26)
[2021-01-02] MEDS ORDERED: FAMOTIDINE 20 MG TAB PO SCH (09:00)
--- NOTE | 2021-01-02 09:35 | P.PN ---
Subjective Patient is seen in follow-up for acute kidney injury. Renal function stable. Creatinine 1.6 as of yesterday. Currently having breakfast. Has been voiding. No chest pain or shortness of breath. Vital signs are stable. General: The patient appeared well nourished and normally developed. HEENT: Head exam is unremarkable. Neck is without jugular venous distension. LUNGS: Breath sounds decreased. HEART: Rate and Rhythm are regular. ABDOMEN: Soft, no distention. EXTREMITITES: No edema. Objective - Vital Signs Vital signs: Vital Signs Temp 97.7 F 01/02/21 07:00 Pulse 65 01/02/21 07:00 Resp 18 01/02/21 07:00 BP 138/85 01/02/21 07:00 Pulse Ox 98 01/02/21 07:00 Intake & Output 01/01/21 01/02/21 01/02/21 18:59 06:59 18:59 Intake Total 625 260 Balance 625 260 Weight 71.668 kg Intake: Intake, IV Titration 225 Amount Sodium Chloride 0.9% 1, 225 000 ml @ 75 mls/hr IV . [id number] [facility] Rx#:[id number] Oral 400 260 Other: Voiding Method Toilet Toilet Bedside Commode Bedside Commode Diaper Diaper # Voids 3 - Labs CBC & Chem 7: 01/01/21 05:54 01/01/21 05:54 Labs: Abnormal Lab Results - Last 24 Hours (Table) 01/01/21 01/01/21 01/01/21 Range/Units 05:54 05:54 11:04 WBC 14.70 H (4.50-10.00) X 10*3/uL RBC 4.09 L (4.10-5.20) X 10*6/uL MPV 13.2 H (9.5-12.2) fL Neutrophils # (Manual) 9.26 H (2.00-8.90) X 10*3/uL Monocytes # (Manual) 1.47 H (0.20-1.00) X 10*3/uL Eosinophils # (Manual) 1.03 H (0.04-0.35) X 10*3/uL Chloride 114 H (96-109) mmol/L Carbon Dioxide 17.9 L (21.6-31.8) mmol/L Creatinine 1.6 H (0.6-1.5) mg/dL Est GFR (CKD-EPI)AfAm 36.4 L (60.0-200.0) Est GFR (CKD-EPI)NonAf 31.4 L (60.0-200.0) BUN/Creatinine Ratio 10.63 L (12.00-20.00) Ratio POC Glucose (mg/dL) (75-99) mg/dL Calcium 8.1 L (8.7-10.3) mg/dL C-Reactive Protein 5.2 H (<1.0) mg/dL Total Protein 4.7 L (6.2-8.2) g/dL Albumin 3.00 L (3.80-4.90) g/dL Procalcitonin (0.02-0.09) ng/mL 01/01/21 01/01/21 01/01/21 Range/Units 11:04 12:07 17:17 WBC (4.50-10.00) X 10*3/uL RBC (4.10-5.20) X 10*6/uL MPV (9.5-12.2) fL Neutrophils # (Manual) (2.00-8.90) X 10*3/uL Monocytes # (Manual) (0.20-1.00) X 10*3/uL Eosinophils # (Manual) (0.04-0.35) X 10*3/uL Chloride (96-109) mmol/L Carbon Dioxide (21.6-31.8) mmol/L Creatinine (0.6-1.5) mg/dL Est GFR (CKD-EPI)AfAm (60.0-200.0) Est GFR (CKD-EPI)NonAf (60.0-200.0) BUN/Creatinine Ratio (12.00-20.00) Ratio POC Glucose (mg/dL) 102 H 186 H (75-99) mg/dL Calcium (8.7-10.3) mg/dL C-Reactive Protein (<1.0) mg/dL Total Protein (6.2-8.2) g/dL Albumin (3.80-4.90) g/dL Procalcitonin 0.28 H (0.02-0.09) ng/mL 01/02/21 Range/Units 07:27 WBC (4.50-10.00) X 10*3/uL RBC (4.10-5.20) X 10*6/uL MPV (9.5-12.2) fL Neutrophils # (Manual) (2.00-8.90) X 10*3/uL Monocytes # (Manual) (0.20-1.00) X 10*3/uL Eosinophils # (Manual) (0.04-0.35) X 10*3/uL Chloride (96-109) mmol/L Carbon Dioxide (21.6-31.8) mmol/L Creatinine (0.6-1.5) mg/dL Est GFR (CKD-EPI)AfAm (60.0-200.0) Est GFR (CKD-EPI)NonAf (60.0-200.0) BUN/Creatinine Ratio (12.00-20.00) Ratio POC Glucose (mg/dL) 156 H (75-99) mg/dL Calcium (8.7-10.3) mg/dL C-Reactive Protein (<1.0) mg/dL Total Protein (6.2-8.2) g/dL Albumin (3.80-4.90) g/dL Procalcitonin (0.02-0.09) ng/mL Microbiology - Last 24 Hours (Table) 12/29/20 22:24 Blood Culture - Preliminary Blood No Growth after 72 hours Assessment and Plan Plan: Assessment: 1. Acute kidney injury secondary to ATN secondary to hypotension. Renal function stable. Creatinine 1.6 as of yesterday. No evidence of hydronephrosis noted on kidney ultrasound done 12/26/2020. UA fairly benign. 2. Dementia. 3. UTI with urine culture positive for E. coli on antibiotics. Also concern for pneumonia. Infectious disease following. 4. Hypotension. Component of hypovolemia and infection. Cortisol level not low. Blood pressure better. On midodrine. 5. Metabolic acidosis secondary to acute kidney injury and IV fluids. Maintaine d on oral bicarbonate. . 6. Hypomagnesemia from poor intake. Plan: Hep-Lock IV fluids. Encouraged oral intake. Add oral magnesium oxide. Morning labs pending.
[2021-01-02] MEDS ORDERED: MAGNESIUM OXIDE 400 MG TAB PO SCH (09:45)
[2021-01-02 11:07] LABS: Basophils # (A) 0.17 X 10*3/uL (0.00-0.10); Basophils % (A) 0.9 %; Eosinophils # (A) 0.01 X 10*3/uL (0.04-0.35); Eosinophils % (A) 0.1 %; HCT 36.9 % (37.2-46.3); HGB 12.1 g/dL (12.0-15.0); Lymphocytes # (A) 6.61 X 10*3/uL (0.90-5.00); MCH 30.6 pg (27.0-32.0); MCHC 32.8 g/dL (32.0-37.0); MCV 93.4 fL (80.0-97.0); Mean Platelet Volume 13.6 fL (9.5-12.2); Monocytes # (A) 0.95 X 10*3/uL (0.20-1.00); Neutrophils # (A) 10.99 X 10*3/uL (1.80-7.70); Neutrophils % (A) 58.1 %; Platelet Count 244 X 10*3/uL (140-440); RBC 3.95 X 10*6/uL (4.10-5.20); RDW 14.4 % (11.5-14.5)
[2021-01-02 11:58] LABS: Glucose,Whole Blood 194 mg/dL (75-99)
--- NOTE | 2021-01-02 13:30 | PN ---
PROGRESS NOTE DATE OF SERVICE: 01/02/2021 REASON FOR FOLLOWUP: UTI and possible pneumonia. INTERVAL HISTORY: Patient is afebrile. The patient is breathing comfortably. Patient denies chest pain. No shortness of breath or cough. No abdominal pain or diarrhea. PHYSICAL EXAMINATION: Blood pressure is 138/85 with a pulse of 65. Temperature 97.7. General description is an elderly female up in the chair in no distress. Respiratory system: Unlabored breathing, decreased breath sounds in the base. No wheeze. Heart S1, S2. Regular rate and rhythm. Abdomen: Soft, no tenderness. LABS: White count is slightly elevated today at 18,000. DIAGNOSTIC IMPRESSION AND PLAN: The patient admitted to the hospital with abnormal labs. He did have urinary tract infection and subsequently concern for possible pneumonia. CT of abdomen and pelvis was negative. The patient is currently on Omnicef for a few days. White count needs to be monitored closely in outpatient setting. Daughter at the bedside. Questions were answered. MMODL / IJN: [id number] /
[2021-01-02 13:57] LABS: African American GFR (CKD) 36.4 (60.0-200.0); Albumin 3.5 g/dL (3.80-4.90); Albumin/Globulin Ratio 1.75 (1.60-3.17); Anion Gap 13.1 mmol/L (4.00-12.00); BUN/Creat Ratio 11.88 Ratio (12.00-20.00); Calcium 8.3 mg/dL (8.7-10.3); Carbon Dioxide 15.9 mmol/L (21.6-31.8); Magnesium 1.7 mg/dL (1.5-2.4); Non-African American GFR(CKD) 31.4 (60.0-200.0); Potassium 4.3 mmol/L (3.5-5.5); Total Bilirubin 0.2 mg/dL (0.3-1.2); Total Protein 5.5 g/dL (6.2-8.2)
[2021-01-02 14:45] VITALS: BP 92/57; PULSE 68; RESP 15
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
--- NOTE | 2021-01-02 20:05 | P.DS ---
Providers Date of admission: 12/29/20 16:49 Expected date of discharge: 01/02/21 Attending physician: Stevan Zuniga Consults: 12/27/20 14:00 Consult Physician Routine Consulting Provider: Keerthi Ennis Consult Reason/Comments: Acute kidney injury Do you want consulting provider notified?: Yes 12/30/20 10:41 Consult Physician Routine Consulting Provider: Patricio Majano Consult Reason/Comments: fever Do you want consulting provider notified?: Yes 01/02/21 11:16 Consult Physician Urgent Consulting Provider: Miguel Dick Consult Reason/Comments: LEUKOCYTOSIS Do you want consulting provider notified?: Yes Primary care physician: Stevan Zuniga Hospital Course: 75-year-old female was admitted for acute on chronic renal failure with associated hyperkalemia an outpatient basis. Patient was sent emergency department revealing worsening renal failure with the GFR of 20. Patient has significant medical history,of diabetes mellitus type II, chronic renal failure, and dementia. Patient had extensive diagnostic workup in the emergency department revealing continue worsening of kidney function. Patient admits to decrease intake of oral fluids and decrease output over the last 3 weeks. Throughout the hospital stay, patient required IV hydration due to dehydration, avoiding nephrotoxic, stopped lisinopril Metformin and Jardiance. IV hydration and avoidance of nephrotoxic drugs improvement in kidney function. During hospital stay patient found to have urinary tract infection was initially treated with Rocephin change Zosyn, mild reactions noted. Patient was stopped on Zosyn noted to have possible penicillin allergy. Patient resumed oral cephalosporins antibiotics, with no reactions noted.Patient Appetite increased with Marinol, and was able to resume Lantus 10 units subcu daily for glycemic control. Patient to have close follow-up with primary care in one to 2 days, nephrology with 2 to 3 weeks and hematology oncology in 2 to 3 weeks for results pertaining to leukocytosis with abnormal shift. Patient discharge with family with guarded prognosis. - Constitutional General appearance: Present: cooperative - EENT Eyes: Present: EOMI, PERRLA ENT: Present: normal oropharynx Ears: bilateral: normal - Neck Neck: Present: normal ROM Carotids: bilateral: upstroke normal Thyroid: bilateral: normal size - Respiratory Respiratory: bilateral: CTA (Anterior and posterior lung lomas) - Cardiovascular Details: Normal sinus rhythm Heart rate: 78 Rhythm: regular Heart sounds: normal: S1, S2 - Peripheral edema ankle Peripheral Edema: bilateral: Trace - Peripheral pulses radial pulse Peripheral Pulses: bilateral: Normal dorsalis pedis Peripheral Pulses: bilateral: Normal - Gastrointestinal General gastrointestinal: Present: normal bowel sounds - Integumentary Integumentary: Present: Intact, with normal turgor, and perfusion - Neurologic Neurologic: Present: CNII-XII intact - Musculoskeletal Musculoskeletal: Present: generalized weakness - Psychiatric Psychiatric Comment(s): Pleasantly confused alert to person in place disorientation to time and situation baseline mental status J Assessment: Dehydration, Improved with IV hydration acute on chronic renal failure Chronic renal failure stage III, Baseline creatinine 1.6 Acute urinary tract infection, Improved with IV antibiotics, will be sent home on oral cephalosporins 7 days leukocytosis, Continue to trend upward, consultation with hematology/oncology for abnormal leukocytosis the abnormal shift diabetes mellitus type II, Resume Lantus 10 units daily dementia, Continue home medications hyperlipidemia, Continue home medications full code Health Concerns: Dementia multiple comorbidities fall risk Pertinent Studies: Serial chest x-rays CT abdomen and pelvis Procedures: No procedures performed during hospital stay Patient Condition at Discharge: Fair Plan - Discharge Summary Discharge Rx Participant: No New Discharge Prescriptions: New Magnesium Oxide [Mag-Ox] 400 mg PO DAILY #30 tab Cefdinir [Omnicef] 300 mg PO Q12HR #14 cap Midodrine [ProAmatine] 5 mg PO AC-BID #30 tab Sodium Bicarbonate Tab 650 mg PO TID #90 tab Cholecalciferol [Vitamin D3 (25 Mcg = 1000 Iu)] 50 mcg PO DAILY #30 tablet Famotidine [Pepcid] 20 mg PO DAILY #30 tab Continue EPINEPHrine (Auto Inject) [Epipen] 0.3 mg IM ONCE PRN #2 pen PRN Reason: Anaphylaxis Insulin Glargine,Hum.rec.anlog [Lantus Solostar] 10 unit SQ QAM Rosuvastatin Calcium [Crestor] 40 mg PO DAILY Oxybutynin ER [Ditropan Xl] 10 mg PO DAILY Hydrocortisone Acetate [Anusol-Hc] 1 applic TOPICAL QID PRN PRN Reason: Hemorrhoids L.acidoph,Paracasei, B.lactis [Probiotic] 1 cap PO DAILY Dimethic/Zinc Ox/Vits A,D/Aloe [A and D Diaper Rash Cream] 1 applic TOPICAL TID Donepezil HCl [Aricept] 10 mg PO DAILY Discontinued Diphenoxylate HCl/Atropine [Lomotil 2.5-0.025 mg Tablet] 1 tab PO TID PRN PRN Reason: Diarrhea Discharge Medication List EPINEPHrine (Auto Inject) [Epipen] 0.3 mg IM ONCE PRN #2 pen 10/24/19 [Rx] Dimethic/Zinc Ox/Vits A,D/Aloe [A and D Diaper Rash Cream] 1 applic TOPICAL TID 12/27/20 [History] Donepezil HCl [Aricept] 10 mg PO DAILY 12/27/20 [History] Hydrocortisone Acetate [Anusol-Hc] 1 applic TOPICAL QID PRN 12/27/20 [History] Insulin Glargine,Hum.rec.anlog [Lantus Solostar] 10 unit SQ QAM 12/27/20 [History] L.acidoph,Paracasei, B.lactis [Probiotic] 1 cap PO DAILY 12/27/20 [History] Oxybutynin ER [Ditropan Xl] 10 mg PO DAILY 12/27/20 [History] Rosuvastatin Calcium [Crestor] 40 mg PO DAILY 12/27/20 [History] Cefdinir [Omnicef] 300 mg PO Q12HR #14 cap 01/02/21 [Rx] Cholecalciferol [Vitamin D3 (25 Mcg = 1000 Iu)] 50 mcg PO DAILY #30 tablet 01/02/21 [Rx] Famotidine [Pepcid] 20 mg PO DAILY #30 tab 01/02/21 [Rx] Magnesium Oxide [Mag-Ox] 400 mg PO DAILY #30 tab 01/02/21 [Rx] Midodrine [ProAmatine] 5 mg PO AC-BID #30 tab 01/02/21 [Rx] Sodium Bicarbonate Tab 650 mg PO TID #90 tab 01/02/21 [Rx] Follow up Appointment(s)/Referral(s): Stevan Zuniga MD [Primary Care Provider] - 01/04/21 4:10 pm Gil Wong MD [STAFF PHYSICIAN] - 4 Weeks (Office will call with appointment time) Roderick Katz DO [STAFF PHYSICIAN] - 01/08/21 11:20 am Patient Instructions/Handouts: Dehydration (DC), Acute Kidney Injury (DC), Leukocytosis (DC) Discharge Disposition: HOME WITH HOME HEALTH SERVICES
[2021-01-02 23:28] LABS: Protein, Total 4.6 g/dL (6.2-8.2)
[2021-01-02 23:40] LABS: Uric Acid 6.6 mg/dL (2.9-7.7)
[2021-01-03 08:36] LABS: Natural Killer Cell (CD16/56) 1416 cell/ul (60-500); Natural Killer Cell (CD16/56)% 16 % (3-24); T Helper Cell (CD4) >3000 cell/ul (443-1471); T Helper Cell (CD4) % 60 % (35-66); T Suppressor Cell (CD8) 1682 cell/ul (190-832); T Suppressor Cell (CD8) % 21 % (9-37); T4/T8 Ratio (CD4:CD8) 2.9 (1.0-3.7); Total B Cell (CD19) 693 cell/ul (100-524); Total T Cell (CD3) >3000 cell/ul (704-2138); Total T Cell (CD3)% 76 % (55-86)
[2021-01-04 13:37] LABS: Free Kappa Lt Chain Qnt, Serum 3.85 mg/dL (0.33-1.94)
[2021-01-05 08:19] LABS: Albumin 2.45 g/dL (3.80-4.90); Gamma Globulin 0.51 g/dL (0.70-1.50)
[2021-01-05 14:24] LABS: Immunoglobulin M <16.9 mg/dL (40.0-280.0)
== END 2021-01-02 16:32 | disposition home health service (06) | DRG 871 ==
LOC: EC 09:40 → 6NMEDSUR 13:58 → OBSVTOIN 12-29 16:49
PROVIDERS: ADMIT Family Medicine; ATTEND Family Medicine
DX: A41.51 Sepsis due to Escherichia coli [E. coli] (principal); N17.0 Acute kidney failure with tubular necrosis; G93.41 Metabolic encephalopathy; E87.2 Acidosis; N13.6 Pyonephrosis; Z20.822 Contact with and (suspected) exposure to COVID-19; E86.0 Dehydration; Z91.81 History of falling; Z90.81 Acquired absence of spleen; Z83.3 Family history of diabetes mellitus; Z80.6 Family history of leukemia; Z79.899 Other long term (current) drug therapy; Z79.4 Long term (current) use of insulin; E87.5 Hyperkalemia; F03.90 Unspecified dementia, unspecified severity, without behavioral disturbance, psychotic disturbance, mood disturbance, and anxiety; E11.22 Type 2 diabetes mellitus with diabetic chronic kidney disease; E78.5 Hyperlipidemia, unspecified; E83.42 Hypomagnesemia; E86.1 Hypovolemia; N18.30 Chronic kidney disease, stage 3 unspecified; I95.9 Hypotension, unspecified; M79.10 Myalgia, unspecified site; D72.820 Lymphocytosis (symptomatic)
CPT/HCPCS: 36415; 71045; 71046; 74176; 80048; 80053; 81001; 81003; 82306; 82533; 82550; 82607; 82784; 83605; 83615; 83735; 83883; 83921; 84100; 84145; 84165; 84260; 84550; 85025; 85652; 86038; 86140; 86334; 86355; 86357; 86359; 86360; 86431; 87040; 87077; 87086; 87186; 87324; 87635; 93005; 94640; 99285

== ENCOUNTER 2021-01-03 03:17 | Emergency (ER) | payer MEDICARE ==
[2021-01-03 03:29] VITALS: RESP 18; TEMP 97.8
[2021-01-03] MEDS ORDERED: predniSONE 20 MG TAB PO STA (04:10)
[2021-01-03] MEDS ORDERED: hydrOXYzine HCL 25 MG TAB PO ONE (04:10)
[2021-01-03] MEDS ORDERED: FAMOTIDINE 20 MG TAB PO STA (04:10)
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
--- NOTE | 2021-01-03 05:08 | XR ---
EXAMINATION TYPE: XR chest 2V DATE OF EXAM: 01/03/2021 COMPARISON: 01/01/2021 HISTORY: Allergy. TECHNIQUE: 2 views FINDINGS: Heart and mediastinum appear normal. There is coarse interstitial density in the lungs. The re is no pulmonary consolidation. Bony thorax is intact. There is pleural thickening at the lung apic es. There is some mild blunting of the posterior right costophrenic angle. IMPRESSION: There is increased pulmonary vascularity compared to recent exam and suggestive of mild a cute heart failure. Small right pleural effusion.
--- NOTE | 2021-01-03 05:09 | XR ---
EXAMINATION TYPE: XR soft tissue neck DATE OF EXAM: 01/03/2021 COMPARISON: NONE HISTORY: Allergic reaction TECHNIQUE: 2 views FINDINGS: Epiglottis is normal. Subglottic trachea appears normal. Prevertebral soft tissues are inta ct. Tonsils and adenoids appear intact. IMPRESSION: Negative cervical soft tissue exam.
[2021-01-03 05:41] VITALS: BP 116/68; PULSE 64
== END 2021-01-03 05:41 | disposition home or self-care (01) ==
LOC: EC 03:17
DX: T78.40XA Allergy, unspecified, initial encounter (principal); E11.9 Type 2 diabetes mellitus without complications; E78.5 Hyperlipidemia, unspecified; F03.90 Unspecified dementia, unspecified severity, without behavioral disturbance, psychotic disturbance, mood disturbance, and anxiety; Z79.4 Long term (current) use of insulin; Z79.899 Other long term (current) drug therapy; Z88.0 Allergy status to penicillin; Z88.1 Allergy status to other antibiotic agents; Z88.5 Allergy status to narcotic agent; Z91.010 Allergy to peanuts
CPT/HCPCS: 70360; 71046; 99283; J7512

== ENCOUNTER 2022-07-01 07:08 | Emergency (ER) | payer MEDICARE ==
[2022-07-01 07:18] VITALS: RESP 18; TEMP 96.9
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
--- NOTE | 2022-07-01 09:00 | XR ---
EXAMINATION TYPE: XR wrist complete LT DATE OF EXAM: 07/01/2022 CLINICAL HISTORY: pain TECHNIQUE: Frontal, lateral and oblique images of the left wrist are obtained. COMPARISON: None. FINDINGS: There is impacted and comminuted distal radial fracture with suspected intra-articular exte nsion. There is also fracture of the distal ulna is mildly angulated and displaced by approximately 1 .2 mm. Soft tissue swelling is noted. No additional fractures are seen at this time. IMPRESSION: Distal radial and ulnar fractures as noted.
--- NOTE | 2022-07-01 09:05 | CT ---
EXAMINATION TYPE: CT brain ronald vera DATE OF EXAM: 07/01/2022 COMPARISON: 12/25/2016 HISTORY: Fall CT DLP: [address] of the brain was performed. The ventricles, basal cisterns and sulci overlying the cerebral convexities demonstrate mildly enl argement. There is no evidence for intracranial hemorrhage or sulcal effacement. There is decreased attenuatio n about the periventricular white matter and deep white matter of both cerebral hemispheres, compatib le with chronic small vessel ischemia. No mass effects are seen. If symptoms persist consider MRI. Osseous calvarium is intact. IMPRESSION: 1. Age related atrophic and chronic small vessel ischemic change without acute intracranial process seen at this time. CT Cervical Spine: Unenhanced CT of the cervical spine was performed with bone and soft tissue window settings submitted . Coronal and sagittal reconstruction is obtained. There is normal alignment and prevertebral soft tissues. No evidence for acute cervical fracture . Scattered degenerative disc disease and spondylosis. Biapical scarring. IMPRESSION: 1. No evidence for acute fracture or subluxation of the cervical spine.
--- NOTE | 2022-07-01 09:07 | XR ---
EXAMINATION TYPE: XR chest 1V portable DATE OF EXAM: 07/01/2022 HISTORY: Shortness of breath. COMPARISON: 01/14/2021 TECHNIQUE: Single view of the chest is submitted. FINDINGS: Demonstrated are scattered senescent parenchymal change. There is no evidence for focal infiltrate. The heart is stable. Hilar and mediastinal structures are within normal limits. Degenerative changes are seen of the dorsal spine. IMPRESSION: 1. Chronic changes without evidence for acute pulmonary disease.
--- NOTE | 2022-07-01 09:10 | XR ---
EXAMINATION TYPE: XR pelvis AP view DATE OF EXAM: 07/01/2022 CLINICAL HISTORY: pain TECHNIQUE: Single view the pelvis is submitted. FINDINGS: No evidence for fracture, dislocation or bony lesion. Joint spaces are well-preserved. S I joints appear symmetric. IMPRESSION: 1. No acute fracture or dislocation seen. ICD 10 NO FRACTURE, INITIAL EVALUATION
[2022-07-01] MEDS ORDERED: LIDOCAINE 1% INJ 10MG/ML (30 ML VIAL-PF) SQ ONE (10:12)
--- NOTE | 2022-07-01 10:51 | XR ---
EXAMINATION TYPE: XR wrist limited LT DATE OF EXAM: 07/01/2022 10:44 AM INDICATION: Patient age:Female; 77 years old; Reason for study: post reduction; [facility]. COMPARISON: Left wrist radiograph 07/01/2022. TECHNIQUE: Frontal and lateral views of the left wrist. FINDINGS: Overlying cast material limits evaluation of fine osseous detail. Improved alignment of com minuted distal radius fracture with intra-articular extension. Similar alignment of mildly angulated displaced fracture of the distal ulna. There is overlying soft tissue edema. IMPRESSION: 1. Improved alignment of distal radial fracture post reduction. 2. Unchanged distal ulnar fracture.
[2022-07-01 13:04] VITALS: BP 132/78; PULSE 90
== END 2022-07-01 13:05 | disposition home or self-care (01) ==
LOC: EC 07:08
DX: S62.102A Fracture of unspecified carpal bone, left wrist, initial encounter for closed fracture (principal); E11.9 Type 2 diabetes mellitus without complications; Z79.4 Long term (current) use of insulin; Z88.0 Allergy status to penicillin; Z88.1 Allergy status to other antibiotic agents; Z88.5 Allergy status to narcotic agent; Z88.8 Allergy status to other drugs, medicaments and biological substances; X58.XXXA Exposure to other specified factors, initial encounter
CPT/HCPCS: 99285 ×2; 25605 ×2; 93005; 72170; 73100; 73110; 71045; 72125; 70450; J2001

== ENCOUNTER 2022-10-22 17:33 | Emergency (ER) | payer MEDICARE ==
[2022-10-22 17:43] VITALS: TEMP 97.8
[2022-10-22 17:48] VITALS: RESP 20
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
[2022-10-22 21:21] VITALS: BP 133/74; PULSE 74
== END 2022-10-22 21:28 | disposition home or self-care (01) ==
LOC: EC 17:33
DX: T78.40XA Allergy, unspecified, initial encounter (principal); E11.9 Type 2 diabetes mellitus without complications; F03.90 Unspecified dementia, unspecified severity, without behavioral disturbance, psychotic disturbance, mood disturbance, and anxiety; Z79.4 Long term (current) use of insulin; Z79.82 Long term (current) use of aspirin; Z79.899 Other long term (current) drug therapy; Z88.0 Allergy status to penicillin; Z88.1 Allergy status to other antibiotic agents; Z88.5 Allergy status to narcotic agent; Z88.8 Allergy status to other drugs, medicaments and biological substances; Z90.49 Acquired absence of other specified parts of digestive tract; Z91.010 Allergy to peanuts
CPT/HCPCS: 99284

== ENCOUNTER 2022-11-28 20:35 | Emergency (ER) | payer MEDICARE ==
[2022-11-28 20:49] VITALS: RESP 18; TEMP 99
--- NOTE | 2022-11-28 21:21 | XR ---
EXAMINATION TYPE: XR forearm RT, XR elbow complete RT, XR humerus RT DATE OF EXAM: 11/28/2022 9:03 PM INDICATION: Patient age:Female; 77 years old; Reason for study: fall; COMPARISON: None TECHNIQUE: The right forearm was examined in AP and lateral projections. Right elbow was evaluated in frontal lateral and oblique views. The right humerus was evaluated in frontal lateral views. FINDINGS/IMPRESSION: Acute displaced fracture of the olecranon process with 10 mm displacement. Ther e is soft tissue swelling. There is a joint effusion with anterior fat pad sign. The remainder of the osseous structures appear intact including the humerus and ureters.
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
[2022-11-29 00:18] VITALS: BP 122/70; PULSE 74
== END 2022-11-29 00:18 | disposition home or self-care (01) ==
LOC: EC 20:35
DX: S52.021A Displaced fracture of olecranon process without intraarticular extension of right ulna, initial encounter for closed fracture (principal); E11.9 Type 2 diabetes mellitus without complications; Z79.4 Long term (current) use of insulin; Z79.82 Long term (current) use of aspirin; Z79.899 Other long term (current) drug therapy; Z88.0 Allergy status to penicillin; Z88.1 Allergy status to other antibiotic agents; Z88.5 Allergy status to narcotic agent; Z88.8 Allergy status to other drugs, medicaments and biological substances; Z90.49 Acquired absence of other specified parts of digestive tract; W18.30XA Fall on same level, unspecified, initial encounter
CPT/HCPCS: 29105; 99284